=== PATIENT | female | born 1970 | race Caucasian/White ===

== ENCOUNTER → 2018-04-29 11:35 | Outpatient (CLI) | payer OTHER, SELFPAY ==
--- NOTE | 2018-04-29 | DI.MG.S_ITS ---
BILATERAL DIGITAL SCREENING MAMMOGRAM 3D/2D WITH CAD: 04/29/2018 CLINICAL: Routine screening. Comparison is made to exams dated: 09/19/2016 mammogram, 03/21/2016 mammogram, and 08/01/2014 mammogram - [facility]. There are scattered fibroglandular elements in both breasts. Current study was also evaluated with a Computer Aided Detection (CAD) system. No significant masses, calcifications, or other findings are seen in either breast. There has been no significant interval change. IMPRESSION: NEGATIVE There is no mammographic evidence of malignancy. A 1 year screening mammogram is recommended. This exam was interpreted at Station ID: [id number]. NOTE: For mammograms, a report in lay terms will be sent to the patient. Approximately 15% of breast malignancies will not be visualized mammographically. In the management of a palpable breast mass, a negative mammogram must not discourage biopsy of a clinically suspicious lesion. Electronically Signed By: Serg julian/dipesh:04/29/2018 18:38:55 copy to: Manohar Fox letter sent: Normal Exam ACR BI-RADS Category 1: Negative [id number]
== END ==
PROVIDERS: PCP Family Medicine
DX: Z12.31 Encounter for screening mammogram for malignant neoplasm of breast (principal)
CPT/HCPCS: 77063; 77067

== ENCOUNTER 2018-11-11 13:09 | Emergency (ER) | payer BC, SELFPAY ==
[2018-11-11 13:10] VITALS: BP 150/91; PULSE 106; RESP 17; TEMP 36.8; O2SAT 99; BMI 48.4
--- NOTE | 2018-11-11 13:30 | DI.US.S_ITS ---
PROCEDURE: US PERIPH VENOUS LOW EXTREM RT INDICATIONS: PAIN RT LOWER LEG, RECENT INNOBILITY TECHNIQUE: Real-time imaging, as well as color and pulse Doppler interrogation, were performed of the lower extremity deep veins from the inguinal ligament to the popliteal fossa. COMPARISON: None. FINDINGS: The common femoral, femoral and popliteal veins are normally compressible, and free of intraluminal thrombus. Color and pulse Doppler demonstrate normal phasic intraluminal flow. There is normal augmentation response to distal compression maneuver. IMPRESSION: No DVT in the right lower extremity. Dictated by: Melissa Machuca M.D. on 11/11/2018 at 14:28 Approved by: Melissa Machuca M.D. on 11/11/2018 at 14:28
--- NOTE | 2018-11-11 14:21 | ED.EXTPRO ---
HPI - Extremity Problem <Edie Osorio, SIEBEL CONSULTANT-BC - Last Filed: 11/11/18 15:45> General Chief complaint: Extremity Problem,Nontraumatic Stated complaint: PAIN IN RIGHT CALF Time Seen by Provider: 11/11/18 13:16 Source: patient Mode of arrival: ambulatory Limitations: no limitations History of Present Illness HPI Narrative: The patient is a 48-year-old female nonsmoker who presents with a chief complaint of right lower leg pain. She states she has been having right lower leg pain since she got back from her trip to [place] about 4-5 days ago. She had a [address] day. She denies any recent surgeries, but does admit to being immobile during her travels. She denies any personal history of blood clots, but is very concerned as she has a friend who from a DVT last year. She denies any fevers nausea vomiting diarrhea chest pain or shortness of breath. She denies any hormone use other than her Mirena IUD. Related Data Home Medications Medication Instructions Recorded Confirmed Pseudoephedrine Hydrochlorid 60 mg PO PRN #0 07/28/11 04/20/18 (#SUDAFED) esomeprazole magnesium [Nexium] 40 mg PO QDAY #0 07/28/11 04/20/18 Acetaminophen/Aspirin/Caffei 2 2 PO PRN #0 05/21/12 04/20/18 (EXCEDRIN EXTRA STRENGTH 250 MG-250 MG-65 MG~) CHOLECALCIFEROL (VITAMIN D3) 1,000 units PO QDAY #0 05/21/12 04/20/18 (VITAMIN D3) MECLIZINE HCL 25 mg PO #0 05/21/12 04/20/18 CALCIUM CARBONATE (TUMS ) 500 mg PO PRN #0 08/19/12 04/20/18 VITAMIN B COMPLEX (Vitamin B 1 tab PO QDAY #0 08/19/12 04/20/18 Complex) levonorgestrel [Mirena] 52 mg INTRAU #0 03/25/16 04/20/18 Previous Rx's Medication Instructions Recorded metronidazole [Metrogel Vaginal] 1 appl VAGINAL HS #70 gm 11/03/17 Allergies Allergy/AdvReac Type Severity Reaction Status Date / Time ciprofloxacin [CIPROFLOXACIN] Allergy Mild HIVES Verified 11/11/18 13:14 benzoin [BENZOIN] Allergy Unknown Verified 11/11/18 13:14 morphine [MORPHINE] Allergy Unknown Verified 11/11/18 13:14 SKIN GLUE Allergy Unknown BLISTERS Uncoded 04/20/18 16:31 Review of Systems <ANTONINA Tidwell - Last Filed: 11/11/18 15:45> Review of Systems GENERAL: Denies chills, fatigue, malaise, fever, sweats. HEENT: Denies sinus pain, ear pain, sore throat, difficulty swallowing, dizziness. RESPIRATORY: Denies dyspnea, cough, wheezing, hemoptysis, sputum. CARDIOVASCULAR: Denies chest pain, palpitations, orthopnea, edema, GASTROINTESTINAL: Denies nausea, vomiting, abdominal pain, diarrhea, constipation, melena. : Denies dysuria, frequency, incontinence, hematuria, urinary retention. MUSCULOSKELETAL: See HPI SKIN: Denies rash, skin lesions, or other NEUROLOGIC: Denies weakness, headache, numbness, change in speech, confusion, seizures, incoordination. PSYCHIATRIC: No concerning psychosocial issues. 12 point review of systems is negative except for those stated above PFSH <ANTONINA Tidwell - Last Filed: 11/11/18 15:45> Surgical History Status post delivery (12/25/03) Status post delivery (12/19/05) Status post ovarian cystectomy Social History Smoking Status: Never smoker Social History Smoking Status: Never smoker Exam <ANTONINA Tidwell - Last Filed: 11/11/18 15:45> Narrative Exam Narrative: GENERAL: Obese female in no acute distress HEAD: Atraumatic. Normocephalic. No temporal or scalp tenderness. EYES: Pupils equal round and reactive. Extraocular motions intact. No scleral icterus. No injection or drainage. ENT: Nose without bleeding, purulent drainage or septal hematoma. Throat without erythema, tonsillar hypertrophy or exudate. Uvula midline. Airway patent. NECK: Trachea midline. No JVD or lymphadenopathy. Supple, nontender, no meningeal signs. CARDIOVASCULAR: Regular rate and rhythm without murmurs, gallops, or rubs. RESPIRATORY: Clear to auscultation. Breath sounds equal bilaterally. No wheezes, rales, or rhonchi. No cough. No increased respiratory effort. No accessory muscle use. GASTROINTESTINAL: Abdomen soft, non-tender, nondistended. No hepato-splenomegaly, or palpable masses. No guarding. EXTREMITIES: No pedal edema noted bilaterally. Positive pedal pulses bilaterally. Slight pain to palpation right posterior calf. Negative Homans sign right lower leg. BACK: Nontender without deformity or crepitance. No flank tenderness. NEURO: AOx3. SKIN: No erythema ecchymosis or visual abnormality right lower leg Initial Vital Signs Initial Vital Signs: Vital Signs Temperature 98.3 F 11/11/18 13:10 Pulse Rate 106 H 11/11/18 13:10 Respiratory Rate 17 11/11/18 13:10 Blood Pressure 150/91 H 11/11/18 13:10 Pulse Oximetry 99 11/11/18 13:10 <Taina Ortiz MD - Last Filed: 11/11/18 19:57> Initial Vital Signs Initial Vital Signs: Vital Signs Temperature 98.3 F 11/11/18 13:10 Pulse Rate 106 H 11/11/18 13:10 Respiratory Rate 17 11/11/18 13:10 Blood Pressure 150/91 H 11/11/18 13:10 Pulse Oximetry 99 11/11/18 13:10 Course <ANTONINA Tidwell - Last Filed: 11/11/18 15:45> Orders Ordered: ED Orders 11/11/18 13:30 periph venous low extrem rt Stat Vital Signs - 8 hr 11/11/18 13:10 11/11/18 15:47 Temperature 98.3 F Pulse Rate 106 H 84 Respiratory Rate 17 20 Blood Pressure 150/91 H 160/87 H Pulse Oximetry 99 99 <Taina Ortiz MD - Last Filed: 11/11/18 19:57> Orders Ordered: ED Orders 11/11/18 13:30 periph venous low extrem rt Stat Vital Signs - 8 hr 11/11/18 13:10 11/11/18 15:47 Temperature 98.3 F Pulse Rate 106 H 84 Respiratory Rate 17 20 Blood Pressure 150/91 H 160/87 H Pulse Oximetry 99 99 MDM - Extremity (Nontraumatic) <ANTONINA Tidwell - Last Filed: 11/11/18 15:45> Imaging Data Venous US: Radiologist's impression: Sarah Hunt R 48 F 1970 [place] [address] Ultrasound Report Signed Patient: Sarah Hunt RMR#: [id number] : 1970Acct:[id number] Age/Sex: 48 / FDate of Service: 11/11/18 Loc: ED Accession Number: [id number] Procedure: US periph venous low extrem rt Ordering Provider: Edie OsorioP-BC PROCEDURE: US PERIPH VENOUS LOW EXTREM RT INDICATIONS: PAIN RT LOWER LEG, RECENT INNOBILITY TECHNIQUE: Real-time imaging, as well as color and pulse Doppler interrogation, were performed of the lower extremity deep veins from the inguinal ligament to the popliteal fossa. COMPARISON: None. FINDINGS: The common femoral, femoral and popliteal veins are normally compressible, and free of intraluminal thrombus. Color and pulse Doppler demonstrate normal phasic intraluminal flow. There is normal augmentation response to distal compression maneuver. IMPRESSION: No DVT in the right lower extremity. Dictated by: Melissa Machuca M.D. on 11/11/2018 at 14:28 Approved by: Melissa Machuca M.D. on 11/11/2018 at 14:28 [facility] Narrative Medical decision making narrative: The patient is a 48-year-old female who presents with a chief complaint of right lower leg pain. She does have a few risk factors for DVT including obesity as well as a recent 14 hour trip. She denies any chest pain or shortness of breath. Given her risk factors, an ultrasound was obtained. This ultrasound come back negative for any evidence of DVT. I discussed at length pushing fluids, conservative measures. Offered to check patient's electrolytes, but patient declined. She states she will follow up with her primary care provider in the next few days. I discussed come back to ER for any acute concerns such as chest pain, shortness of breath or swelling. Patient has no questions or concerns upon discharge. Discharge Plan Departure Patient Disposition: Home Clinical Impression: Leg pain Qualifiers: Laterality: right Qualified Code(s): M79.604 - Pain in right leg Discharge Date/Time: 11/11/18 15:48 Interventions: ED Discharge Assessment Last Done: 11/11/18 15:47 Instructions: DI for Leg Pain Activity Restrictions/Additional Instructions: Your ultrasound shows no evidence of a blood clot. As we discussed, please try [id number] medications as needed and able. Please follow up with primary care provider in the next few days. Please come back to the emergency department for any acute concerns such as chest pain, shortness of breath etc. Prescriptions: No Action esomeprazole magnesium [Nexium] 40 MG capsule,delayed release(DR/EC) 40 mg PO QDAY Qty: 0 RF: 0 Pseudoephedrine Hydrochlorid (#SUDAFED) 60 mg PO PRN Qty: 0 RF: 0 CHOLECALCIFEROL (VITAMIN D3) (VITAMIN D3) 1,000 units PO QDAY Qty: 0 RF: 0 MECLIZINE HCL 25 mg PO Qty: 0 RF: 0 Acetaminophen/Aspirin/Caffei (EXCEDRIN EXTRA STRENGTH 250 MG-250 MG-65 MG~) 2 2 PO PRN Qty: 0 RF: 0 CALCIUM CARBONATE (TUMS ) 500 mg PO PRN Qty: 0 RF: 0 VITAMIN B COMPLEX (Vitamin B Complex) 1 tab PO QDAY Qty: 0 RF: 0 levonorgestrel [Mirena] 1 EACH intrauterine device 52 mg INTRAU Qty: 0 RF: 0 metronidazole [Metrogel Vaginal] 0.75 % gel 1 appl Vaginal HS Qty: 70 RF: 0 Referrals: Manohar Fox MD [Primary Care Provider] -
--- NOTE | 2018-11-11 14:24 | ED_ITS ---
HPI - Extremity Problem <Edie Osorio, PRE OWNED SALES CONSULTANT-BC - Last Filed: 11/11/18 15:45> General Chief complaint: Extremity Problem,Nontraumatic Stated complaint: PAIN IN RIGHT CALF Time Seen by Provider: 11/11/18 13:16 Source: patient Mode of arrival: ambulatory Limitations: no limitations History of Present Illness HPI Narrative: The patient is a 48-year-old female nonsmoker who presents with a chief complaint of right lower leg pain. She states she has been having right lower leg pain since she got back from her trip to [place] about 4-5 days ago. She had a [address] day[address] She denies any recent surgeries, but does admit to being immobile during her travels. She denies any personal history of blood clots, but is very concerned as she has a friend who from a DVT last year. She denies any fevers nausea vomiting diarrhea chest pain or shortness of breath. She denies any hormone use other than her Mirena IUD. Related Data Home Medications Medication Instructions Recorded Confirmed Pseudoephedrine Hydrochlorid 60 mg PO PRN #0 07/28/11 04/20/18 (#SUDAFED) esomeprazole magnesium [Nexium] 40 mg PO QDAY #0 07/28/11 04/20/18 Acetaminophen/Aspirin/Caffei 2 2 PO PRN #0 05/21/12 04/20/18 (EXCEDRIN EXTRA STRENGTH 250 MG-250 MG-65 MG~) CHOLECALCIFEROL (VITAMIN D3) 1,000 units PO QDAY #0 05/21/12 04/20/18 (VITAMIN D3) MECLIZINE HCL 25 mg PO #0 05/21/12 04/20/18 CALCIUM CARBONATE (TUMS ) 500 mg PO PRN #0 08/19/12 04/20/18 VITAMIN B COMPLEX (Vitamin B 1 tab PO QDAY #0 08/19/12 04/20/18 Complex) levonorgestrel [Mirena] 52 mg INTRAU #0 03/25/16 04/20/18 Previous Rx's Medication Instructions Recorded metronidazole [Metrogel Vaginal] 1 appl VAGINAL HS #70 gm 11/03/17 Allergies Allergy/AdvReac Type Severity Reaction Status Date / Time ciprofloxacin [CIPROFLOXACIN] Allergy Mild HIVES Verified 11/11/18 13:14 benzoin [BENZOIN] Allergy Unknown Verified 11/11/18 13:14 morphine [MORPHINE] Allergy Unknown Verified 11/11/18 13:14 SKIN GLUE Allergy Unknown BLISTERS Uncoded 04/20/18 16:31 Review of Systems <ANTONINA Tidwell - Last Filed: 11/11/18 15:45> Review of Systems GENERAL: Denies chills, fatigue, malaise, fever, sweats. HEENT: Denies sinus pain, ear pain, sore throat, difficulty swallowing, dizziness. RESPIRATORY: Denies dyspnea, cough, wheezing, hemoptysis, sputum. CARDIOVASCULAR: Denies chest pain, palpitations, orthopnea, edema, GASTROINTESTINAL: Denies nausea, vomiting, abdominal pain, diarrhea, constipation, melena. : Denies dysuria, frequency, incontinence, hematuria, urinary retention. MUSCULOSKELETAL: See HPI SKIN: Denies rash, skin lesions, or other NEUROLOGIC: Denies weakness, headache, numbness, change in speech, confusion, seizures, incoordination. PSYCHIATRIC: No concerning psychosocial issues. 12 point review of systems is negative except for those stated above PFSH <ANTONINA Tidwell - Last Filed: 11/11/18 15:45> Surgical History Status post delivery (12/25/03) Status post delivery (12/19/05) Status post ovarian cystectomy Social History Smoking Status: Never smoker Social History Smoking Status: Never smoker Exam <ANTONINA Tidwell - Last Filed: 11/11/18 15:45> Narrative Exam Narrative: GENERAL: Obese female in no acute distress HEAD: Atraumatic. Normocephalic. No temporal or scalp tenderness. EYES: Pupils equal round and reactive. Extraocular motions intact. No scleral icterus. No injection or drainage. ENT: Nose without bleeding, purulent drainage or septal hematoma. Throat without erythema, tonsillar hypertrophy or exudate. Uvula midline. Airway patent. NECK: Trachea midline. No JVD or lymphadenopathy. Supple, nontender, no meningeal signs. CARDIOVASCULAR: Regular rate and rhythm without murmurs, gallops, or rubs. RESPIRATORY: Clear to auscultation. Breath sounds equal bilaterally. No wheezes, rales, or rhonchi. No cough. No increased respiratory effort. No accessory muscle use. GASTROINTESTINAL: Abdomen soft, non-tender, nondistended. No hepato- splenomegaly, or palpable masses. No guarding. EXTREMITIES: No pedal edema noted bilaterally. Positive pedal pulses bilaterally. Slight pain to palpation right posterior calf. Negative Homans sign right lower leg. BACK: Nontender without deformity or crepitance. No flank tenderness. NEURO: AOx3. SKIN: No erythema ecchymosis or visual abnormality right lower leg Initial Vital Signs Initial Vital Signs: Vital Signs Temperature 98.3 F 11/11/18 13:10 Pulse Rate 106 H 11/11/18 13:10 Respiratory Rate 17 11/11/18 13:10 Blood Pressure 150/91 H 11/11/18 13:10 Pulse Oximetry 99 11/11/18 13:10 <Taina Ortiz MD - Last Filed: 11/11/18 19:57> Initial Vital Signs Initial Vital Signs: Vital Signs Temperature 98.3 F 11/11/18 13:10 Pulse Rate 106 H 11/11/18 13:10 Respiratory Rate 17 11/11/18 13:10 Blood Pressure 150/91 H 11/11/18 13:10 Pulse Oximetry 99 11/11/18 13:10 Course <ANTONINA Tidwell - Last Filed: 11/11/18 15:45> Orders Ordered: ED Orders 11/11/18 13:30 periph venous low extrem rt Stat Vital Signs - 8 hr 11/11/18 13:10 11/11/18 15:47 Temperature 98.3 F Pulse Rate 106 H 84 Respiratory Rate 17 20 Blood Pressure 150/91 H 160/87 H Pulse Oximetry 99 99 <Taina Ortiz MD - Last Filed: 11/11/18 19:57> Orders Ordered: ED Orders 11/11/18 13:30 periph venous low extrem rt Stat Vital Signs - 8 hr 11/11/18 13:10 11/11/18 15:47 Temperature 98.3 F Pulse Rate 106 H 84 Respiratory Rate 17 20 Blood Pressure 150/91 H 160/87 H Pulse Oximetry 99 99 MDM - Extremity (Nontraumatic) <ANTONINA Tidwell - Last Filed: 11/11/18 15:45> Imaging Data Venous US: Radiologist's impression: Sarah Hunt R 48 F 1970 [place] [address] Ultrasound Report Signed Patient: Sarah Hunt RMR#: [id number] : 1970Acct:[id number] Age/Sex: 48 / FDate of Service: 11/11/18 Loc: ED Accession Number: [id number] Procedure: US periph venous low extrem rt Ordering Provider: Edie OsorioP-BC PROCEDURE: US PERIPH VENOUS LOW EXTREM RT INDICATIONS: PAIN RT LOWER LEG, RECENT INNOBILITY TECHNIQUE: Real-time imaging, as well as color and pulse Doppler interrogation, were performed of the lower extremity deep veins from the inguinal ligament to the popliteal fossa. COMPARISON: None. FINDINGS: The common femoral, femoral and popliteal veins are normally compressible, and free of intraluminal thrombus. Color and pulse Doppler demonstrate normal phasic intraluminal flow. There is normal augmentation response to distal compression maneuver. IMPRESSION: No DVT in the right lower extremity. Dictated by: Melissa Machuca M.D. on 11/11/2018 at 14:28 Approved by: Melissa Machuca M.D. on 11/11/2018 at 14:28 [facility] Narrative Medical decision making narrative: The patient is a 48-year-old female who presents with a chief complaint of right lower leg pain. She does have a few risk factors for DVT including obesity as well as a recent 14 hour trip. She denies any chest pain or shortness of breath. Given her risk factors, an ultrasound was obtained. This ultrasound come back negative for any evidence of DVT. I discussed at length pushing fluids, conservative measures. Offered to check patient's electrolytes, but patient declined. She states she will follow up with her primary care provider in the next few days. I discussed come back to ER for any acute concerns such as chest pain, shortness of breath or swe lling. Patient has no questions or concerns upon discharge. Discharge Plan Departure Patient Disposition: Home Clinical Impression: Leg pain Qualifiers: Laterality: right Qualified Code(s): M79.604 - Pain in right leg Discharge Date/Time: 11/11/18 15:48 Interventions: ED Discharge Assessment Last Done: 11/11/18 15:47 Instructions: DI for Leg Pain Activity Restrictions/Additional Instructions: Your ultrasound shows no evidence of a blood clot. As we discussed, please try [id number] medications as needed and able. Please follow up with primary care provider in the next few days. Please come back to the emergency department for any acute concerns such as chest pain, shortness of breath etc. Prescriptions: No Action esomeprazole magnesium [Nexium] 40 MG capsule,delayed release(DR/EC) 40 mg PO QDAY Qty: 0 RF: 0 Pseudoephedrine Hydrochlorid (#SUDAFED) 60 mg PO PRN Qty: 0 RF: 0 CHOLECALCIFEROL (VITAMIN D3) (VITAMIN D3) 1,000 units PO QDAY Qty: 0 RF: 0 MECLIZINE HCL 25 mg PO Qty: 0 RF: 0 Acetaminophen/Aspirin/Caffei (EXCEDRIN EXTRA STRENGTH 250 MG-250 MG-65 MG~) 2 2 PO PRN Qty: 0 RF: 0 CALCIUM CARBONATE (TUMS ) 500 mg PO PRN Qty: 0 RF: 0 VITAMIN B COMPLEX (Vitamin B Complex) 1 tab PO QDAY Qty: 0 RF: 0 levonorgestrel [Mirena] 1 EACH intrauterine device 52 mg INTRAU Qty: 0 RF: 0 metronidazole [Metrogel Vaginal] 0.75 % gel 1 appl Vaginal HS Qty: 70 RF: 0 Referrals: Manohar Fox MD [Primary Care Provider] -
[2018-11-11 15:47] VITALS: BP 160/87; PULSE 84; RESP 20; O2SAT 99
== END 2018-11-11 15:48 | disposition home or self-care (01) ==
PROVIDERS: Emergency Provider Nurse Practitioner Family; PCP Family Medicine
DX: M79.604 Pain in right leg (principal)
CPT/HCPCS: 93971; 99282; 99283

== ENCOUNTER → 2019-01-25 18:53 | Outpatient (CLI) | payer BC, SELFPAY | PROVIDERS: PCP Family Medicine; Visit Provider Physician Assistant | DX: R30.0 Dysuria (principal) | CPT/HCPCS: 87086; 87210 ==

== ENCOUNTER → 2020-02-16 08:31 | Outpatient (CLI) | payer OTHER, SELFPAY ==
--- NOTE | 2020-02-16 | DI.MG.S_ITS ---
BILATERAL DIGITAL SCREENING MAMMOGRAM 3D/2D WITH CAD: 02/16/2020 CLINICAL: Routine screening. Comparison is made to exams dated: 04/29/2018 mammogram, 03/21/2016 mammogram, and 08/01/2014 mammogram - [facility]. There are scattered fibroglandular elements in both breasts. Current study was also evaluated with a Computer Aided Detection (CAD) system. No significant masses, calcifications, or other findings are seen in either breast. There has been no significant interval change. IMPRESSION: NEGATIVE There is no mammographic evidence of malignancy. A 1 year screening mammogram is recommended. This exam was interpreted at Station ID: [id number]. NOTE: For mammograms, a report in lay terms will be sent to the patient. Approximately 15% of breast malignancies will not be visualized mammographically. In the management of a palpable breast mass, a negative mammogram must not discourage biopsy of a clinically suspicious lesion. Electronically Signed By: Neetu resendez/dipesh:02/16/2020 09:44:08 copy to: Manohar Fox letter sent: Normal Exam ACR BI-RADS Category 1: Negative 3341F
== END ==
PROVIDERS: PCP Student in an Organized Health Care Education/Training Program; Referring Provider Student in an Organized Health Care Education/Training Program; Visit Provider Student in an Organized Health Care Education/Training Program
DX: Z12.31 Encounter for screening mammogram for malignant neoplasm of breast (principal)
CPT/HCPCS: 77063; 77067

== ENCOUNTER → 2020-06-18 12:17 | Outpatient (CLI) | payer OTHER, SELFPAY ==
--- NOTE | 2020-06-18 | DI.RAD.S_ITS ---
PROCEDURE: XR ANKLE LT MIN 3V INDICATIONS: LEFT ANKLE PAIN TECHNIQUE: 3 views of the ankle were acquired. COMPARISON: None. FINDINGS: Bones: No dislocations. Ankle mortise is normally aligned. No suspicious bony lesions. There is a transverse fracture approximately 1 cm above the tip of the lateral malleolus, with overlying soft tissue swelling. This is slightly displaced laterally below the fracture plane. Soft tissues: No tibiotalar joint effusion. Achilles tendon appears normal. IMPRESSION: Mildly displaced acute fracture lateral malleolus as discussed with overlying soft tissue swelling. Dictated by: Parveen Berrios M.D. on 06/18/2020 at 12:50 Approved by: Parveen Berrios M.D. on 06/18/2020 at 12:51
== END ==
PROVIDERS: PCP Student in an Organized Health Care Education/Training Program; Referring Provider Family Medicine; Visit Provider Family Medicine
DX: S82.62XA Displaced fracture of lateral malleolus of left fibula, initial encounter for closed fracture (principal); M25.572 Pain in left ankle and joints of left foot; X58.XXXA Exposure to other specified factors, initial encounter
CPT/HCPCS: 73610

== ENCOUNTER → 2020-09-12 12:14 | Outpatient (CLI) | payer OTHER, SELFPAY ==
--- NOTE | 2020-09-12 | DI.US.S_ITS ---
PROCEDURE: US PELVIC COMPLETE INDICATIONS: Encounter for routine checking of intrauterine contraceptive TECHNIQUE: Real-time scanning was performed of the pelvic organs, with image documentation. Additional endovaginal scanning was necessary due to incomplete visualization of the adnexal and endometrial structures by transabdominal scanning. COMPARISON: [facility], , PELVIC COMPLETE, 01/14/2017, 7:50. FINDINGS: Uterus: Uterus is normal in size at 5.1 x 6.3 x 6.2 cm. The endometrium appears normal where well seen but is partially obscured by an IUD centrally positioned. Ovaries: The right ovary has been previously resected. The left ovary measures 3.0 x 1.9 x 2.6 cm with normal follicular cyst present. Other: No pathologic free abdominal or pelvic fluid. IMPRESSION: Prior right oophorectomy, normal appearing myometrium of the uterus, centrally positioned IUD partially obscures the endometrial lining but where well visualized no endometrial abnormality is suspected. Dictated by: Parveen Berrios M.D. on 09/12/2020 at 14:51 Approved by: Parveen Berrios M.D. on 09/12/2020 at 14:53
== END ==
PROVIDERS: PCP Student in an Organized Health Care Education/Training Program; Referring Provider Student in an Organized Health Care Education/Training Program; Visit Provider Student in an Organized Health Care Education/Training Program
DX: Z30.431 Encounter for routine checking of intrauterine contraceptive device (principal); Z90.721 Acquired absence of ovaries, unilateral
CPT/HCPCS: 76830; 76856

== ENCOUNTER → 2020-10-25 10:20 | Outpatient (CLI) | payer OTHER, SELFPAY ==
[2020-10-25 10:50] LABS: COVID19 -Nasal RAPID Negative (Negative)
== END ==
PROVIDERS: PCP Student in an Organized Health Care Education/Training Program; Visit Provider Obstetrics & Gynecology
DX: Z01.812 Encounter for preprocedural laboratory examination (principal); Z20.822 Contact with and (suspected) exposure to COVID-19
CPT/HCPCS: 87635

== ENCOUNTER 2020-10-26 10:31 | Day surgery (SDC) | payer OTHER, SELFPAY ==
[2020-10-25 14:16] VITALS: BMI 50.8
[2020-10-26 10:52] VITALS: BP 132/93; PULSE 95; RESP 16; TEMP 36.3; O2SAT 99; BMI 50.8
[2020-10-26] MEDS: LACTATED RINGERS 1,000 ML 42 ML IV (11:20)
--- NOTE | 2020-10-26 11:25 | PM.GYNHP.1 ---
History of Present Illness History of Present Illness Narrative: Sarah Hunt is a 50 yo LMP approximately 3 weeks ago who presents today for hysteroscopy with IUD removal and replacement with a new Mirena IUD in the Main OR [facility] under general anesthesiaon 10/26/2020. Attempt to remove her IUD in the office on 09/19/2020 was unsuccessful and therefore removal is being performed today with plans to repalce the Mirena IUD with a new one. 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 IBS (irritable bowel syndrome) Surgical History Status post delivery (12/25/03) Status post delivery (12/19/05) Status post ovarian cystectomy Status post right oophorectomy Social History household members: spouse Smoking Status: Never smoker alcohol intake: current Meds Home Medications and Allergies Home Medications Medication Instructions Recorded Confirmed Type Pseudoephedrine Hydrochlorid 60 mg PO PRN #0 07/28/11 10/26/20 History (#SUDAFED) esomeprazole magnesium [Nexium] 40 mg PO QDAY #0 07/28/11 10/26/20 History Acetaminophen/Aspirin/Caffei 2 2 PO PRN #0 05/21/12 10/26/20 History (EXCEDRIN EXTRA STRENGTH 250 MG-250 MG-65 MG~) cholecalciferol (vitamin D3) 25 mcg PO DAILY #0 05/21/12 10/26/20 History [Vitamin D3] meclizine 25 mg PO PRN PRN #0 05/21/12 10/26/20 History calcium carbonate [Tums 500] 500 mg PO DAILY PRN #0 08/19/12 10/26/20 History vitamin B complex 1 cap PO DAILY #0 08/19/12 10/26/20 History Mirena 52 mg INTRAU CONT #0 03/25/16 10/26/20 History levocetirizine 5 mg tablet 2.5 mg PO DAILY PRN 01/25/19 10/25/20 History Allergies Allergy/AdvReac Type Severity Reaction Status Date / Time ciprofloxacin [CIPROFLOXACIN] Allergy Mild HIVES Verified 10/26/20 10:54 benzoin [BENZOIN] Allergy Unknown Verified 10/26/20 10:54 morphine [MORPHINE] Allergy Unknown Verified 10/26/20 10:54 SKIN GLUE Allergy Unknown BLISTERS Uncoded 10/26/20 10:55 Review of Systems Constitutional Constitutional: Reports system reviewed and no additional complaints, except as documented Exam Vital Signs (past 8 hours): - 10/26/20 10:52 Temperature 97.3 F L Pulse Rate 95 H Respiratory Rate 16 Blood Pressure 132/93 H Pulse Oximetry 99 Oxygen Delivery Method Room Air Const General: cooperative, comfortable and No acute distress HENUT Head: normocephalic and atraumatic Eyes General: appearance normal, both eyes and all related structures Conjunctivae: conjunctivae normal Sclera: sclerae normal EOM: EOM intact bilaterally Neck Neck: normal visual inspection, full ROM, trachea midline and No lymphadenopathy Thyroid: thyroid normal Resp Effort & Inspection: normal respiratory effort and able to speak in complete sentences Auscultation: clear to auscultation bilaterally Cardio Rhythm: regular rhythm Heart Sounds: S1 normal, S2 normal and no murmurs GI Palpation: soft, no hepatosplenomegaly, No mass and No tender External Female Exam: normal external appearance Speculum Exam - Vagina: normal appearance of the vagina and normal vaginal discharge Speculum Exam - Cervix: normal appearance of the cervix and cervical os open Bimanual Exam- Vagina & Uterus: normal bimanual exam, uterine size normal and non-tender Bimanual Exam- Adnexa, other: normal adnexae and no masses OB/External & Speculum: cervical os open Psych Mental Status: mental status grossly normal Speech and Movement: speech and movement normal Mood: congruent mood Affect: normal affect Attitude: cooperative Thought Process: normal Thought Content: normal Judgment: judgment good Assessment & Plan Assessment & Plan narrative: ASSESSMENT: IUD in situ Missing IUD strings Encounter for removal and insertion of Mirena IUD PLAN: Hysteroscopy with removal of Mirena IUD under hysteroscopic visualization Insertion of new Mirena IUD COVID-19 COVID-19 status: Negative Result date/Date tested (Pos, Neg/Pending): 10/25/20 Time Spent With Patient Time with patient: 15-24 minutes
--- NOTE | 2020-10-26 11:45 | PM.PREOP ---
Pre-operative Note COVID-19 COVID-19 status: Negative Result date/Date tested (Pos, Neg/Pending): 10/26/20 Interval Note History & Physical reviewed/Exam performed by Physician: Yes Changes to H&P: No
--- NOTE | 2020-10-26 12:09 | SUR.OPER ---
Lithotomy on padded OR bed, head on pillow, arms secured on padded arm boards at <90 degrees abduction. Legs secured in padded yellow fins stirrups.
[2020-10-26 12:22] VITALS: BP 131/75; PULSE 78; RESP 14; TEMP 36.9; O2SAT 100
[2020-10-26 12:26] VITALS: BP 140/84; PULSE 79; RESP 16; O2SAT 79
[2020-10-26 12:31] VITALS: BP 131/75; PULSE 59; RESP 14; O2SAT 100
[2020-10-26] MEDS: SILVER NITRATE STICK 2 EACH TOP (12:31)
[2020-10-26] MEDS: OXYCODONE/ACETAMINOPHEN 5/325 TABLET 1 TAB PO (12:47)
--- NOTE | 2020-10-26 12:52 | P.OP_ITS ---
Operative Date/Time/Diagnoses Date of procedure: 10/26/20 Time of procedure: 11:45 Pre-op diagnosis: Intrauterine device in situ Missing IUD strings Encounter for removal and replacement of Mirena IUD Post-op diagnosis: same Procedure & Clinicians Procedure: Procedures Operation Date: 10/26/20 11:45 Actual Procedures Side Surgeon p Operative Hysteroscopy Marco Reynaga MD s IUD removal & insertion of Mirena IUD Marco Reynaga MD Indications: Sarah Hunt is a 50 yo LMP approximately 3 weeks ago who presents today for hysteroscopy with IUD removal and replacement with a new Mirena IUD in the Main OR of [facility] under general anesthesiaon 10/26/2020. Attempt to remove her IUD in the office on 09/19/2020 was unsuccessful and therefore removal is being performed today with plans to repalce the Mirena IUD with a new one. Surgeon: Marco Reynaga Anesthesia Type: General Operative Notes Findings: Mirena IUD removed intact without difficulty. Endometrial cavity is unremarkable hysteroscopic evaluation. No endometrial or endocervical sampling was performed. Closure Type: not applicable Specimen(s): none Estimated blood loss (mL): 5 Blood products transfused: none Procedure in detail: With the patient under satisfactory general LMA, the patient was placed in modified dorsal lithotomy position and the vagina and lower abdomen prepped in the usual fashion. A pre-surgical safety time-out was taken per [facility] protocol. A bivalve speculum was placed in the vagina, the cervix visualized, and the anterior lip grasped with single- tooth tenaculum. The endocervical canal was then sequentially dilated to 8 mm using Hegar dilators and the operating hysteroscope was introduced into the endometrial cavity without difficulty. Using saline as a distention medium the cavity was fully inspected and seen to be normal. The intrauterine device was in normal position but the strings were deep within the endometrial cavity. The scope was removed and using a Blayne stone forceps introduced through the endocervical canal the IUD strings were able to be grasped and the delivered through the cervix without difficulty, intact. The uterus was then sounded to 10 cm and a new Mirena was inserted using standard insertion technique. The strings were trimmed to 4 cm and the tenaculum removed from the anterior lip of the cervix. Silver nitrate was applied to the puncture site on the patient's right side for complete hemostasis and once hemostasis was assured the speculum was removed from the vagina and the operation terminated. Patient was awakened and transferred to PACU for a period of recovery and observation having tolerated the procedure well. Complications: none Post-operative Condition: stable Disposition: PACU Plan for aftercare: Discharge to home with follow-up appointment in 2 weeks. Post insertion instructions provided and the patient will be prescribed Vibramycin 100 mg p.o. b.i.d. x5 days as postop antibiotic prophylaxis.
[2020-10-26 12:55] VITALS: BP 128/80; PULSE 80; RESP 14; TEMP 36.6; O2SAT 100
[2020-10-26 13:00] VITALS: BP 122/83; PULSE 80; RESP 16; O2SAT 100
== END 2020-10-26 13:10 | disposition home or self-care (01) ==
PROVIDERS: PCP Student in an Organized Health Care Education/Training Program; Referring Provider Obstetrics & Gynecology; Visit Provider Obstetrics & Gynecology
PROC: 0UDB8ZZ Extraction of Endometrium, Via Natural or Artificial Opening Endoscopic (ICD-10-PCS; CPT 58558; principal; 2020-10-26 11:45)
PROC: (CPT 58301; 2020-10-26 11:45)
DX: Z30.433 Encounter for removal and reinsertion of intrauterine contraceptive device (principal)
CPT/HCPCS: 58301; 58300; 81025; J1100; J1885; J2250; J2405; J2704; J3010

== ENCOUNTER → 2020-11-18 16:01 | Outpatient (CLI) | payer OTHER, SELFPAY | PROVIDERS: PCP Student in an Organized Health Care Education/Training Program; Visit Provider Physician Assistant | DX: N94.9 Unspecified condition associated with female genital organs and menstrual cycle (principal); R31.9 Hematuria, unspecified | CPT/HCPCS: 87086; 87210 ==

== ENCOUNTER 2021-06-03 10:13 | Emergency (ER) | payer OTHER, SELFPAY ==
[2021-06-03] VITALS (23 sets, daily range): BP systolic 132–161; BP diastolic 67–93; PULSE 65–102; RESP 13–27; TEMP 36.2; O2SAT 96–100; BMI 51.1
--- NOTE | 2021-06-03 10:38 | DI.RAD.S_ITS ---
PROCEDURE: XR CHEST 1V INDICATIONS: chest pain TECHNIQUE: One view of the chest was acquired. COMPARISON: [facility], , CHEST 2 VIEW, 10/07/2006, 18:16. FINDINGS: Surgical changes and devices: None. Lungs and pleura: On this semiupright portable chest examination, no large pneumothorax or large pleural effusions are seen. No focal infiltrates are seen. Low lung volumes are noted. This causes a crowded appearance to the lung markings and limits evaluation. Mediastinum: Mediastinal contours appear normal. Heart size is normal. Bones and chest wall: No suspicious bony lesions. Overlying soft tissues appear unremarkable. IMPRESSION: Limited portable chest examination, without a significant cardiopulmonary abnormality identified. Dictated by: Deshaun Oliva M.D. on 06/03/2021 at 10:02 Approved by: Deshaun Oliva M.D. on 06/03/2021 at 10:03
[2021-06-03 10:59] LABS: Add Manual Diff / Slide Review NO; Basophils Absolute Auto 0 /uL (0-100); Basophils Percent Auto 0.7 % (0-2); Eosinophils Absolute Auto 100 /uL (0-450); Eosinophils Percent Auto 1.2 % (2-4); Hematocrit 41.9 % (36-46); Hemoglobin 14.1 g/dL (12.0-16.0); Lymphocytes Absolute Auto 1700 /uL (1100-4500); Lymphocytes Percent Auto 24.2 % (25-40); Mean Corpuscular HGB Conc 33.6 % (30-36); Mean Corpuscular Volume 86.3 fL (80-100); Monocytes Absolute Auto 500 /uL (0-900); Monocytes Percent Auto 7.7 % (3-14); Neutrophils Absolute Auto 4700 /uL (1500-7000); Neutrophils Percent Auto 66.2 % (50-75); Platelet Count 205 X10^3/uL (150-400); Red Blood Cell Count 4.85 X10^6/uL (4.0-5.2); Red Cell Distribution Width 12.9 % (11.6-14.8); White Blood Cell Count 7.1 X10^3/uL (4.5-11.0)
[2021-06-03 11:09] LABS: Alanine Aminotransferase 28 IU/L (<35); Albumin 4.7 g/dL (3.5-5.0); Albumin Globulin Ratio 1.4 (1.0-2.8); Alkaline Phosphatase 54 U/L (38-126); Aspartate Aminotransferase 21 IU/L (14-36); BUN Creatinine Ratio 15.7 (6-22); Bilirubin Total 0.6 mg/dL (0.2-1.3); Blood Urea Nitrogen 14 mg/dL (7-17); Calcium 10.9 mg/dL (8.4-10.2); Carbon Dioxide 25 mmol/L (22-32); Chloride 106 mmol/L (98-107); Creatine Kinase 42 U/L (30-135); Estimated Glomerular Filt Rate > 60.0 mL/min (>60); Globulin 3.3 g/dL (1.7-4.1); Glucose 122 mg/dL (70-100); HEMOLYSIS < 15 (0-50); Lipase 68 U/L (23-300); Magnesium 2.1 mg/dL (1.6-2.3); Potassium 3.8 mmol/L (3.4-5.1); Sodium 139 mmol/L (137-145)
[2021-06-03 11:21] LABS: Troponin I < 0.012 ng/mL (0.01-0.034)
[2021-06-03 15:06] LABS: D Dimer 492 ng/mL (<230)
--- NOTE | 2021-06-03 15:10 | ED_ITS ---
HPI - Arrhythmia/Palpitations <Nilson Wright PA-C - Last Filed: 06/03/21 18:03> General Chief Complaint: Arrhythmia/Palpitations Stated Complaint: Heart Palps, high BP Time Seen by Provider: 06/03/21 14:27 Source: patient and family Mode of arrival: Ambulatory History of Present Illness HPI narrative: 51-year-old female with no reported past medical history presents to the ED with 1 week of palpitations. Patient states that she has been feeling intermittent palpitations, endorses a couple episodes of left-sided chest pain that have resolved. Patient endorses nausea, denies vomiting. Patient denies fever, ch ills, shortness of breath, abdominal pain, dysuria, lightheadedness, dizziness, syncope. Patient denies history of blood clots. Patient endorses recently increased stress which seems to exacerbate her palpitations. Patient also states that her blood pressure has been elevated recently. Patient denies a diagnosis of hypertension, does not take medications for it. Patient endorses history of GERD, takes Nexium daily. Related Data Home Medications Medication Instructions Recorded Confirmed Pseudoephedrine Hydrochlorid 60 mg PO PRN #0 07/28/11 11/18/20 (#SUDAFED) esomeprazole magnesium 40 mg 40 mg PO QDAY #0 07/28/11 11/18/20 capsule,delayed release (Nexium) Acetaminophen/Aspirin/Caffei 2 2 PO PRN #0 05/21/12 11/18/20 (EXCEDRIN EXTRA STRENGTH 250 MG-250 MG-65 MG~) cholecalciferol (vitamin D3) 25 25 mcg PO DAILY #0 05/21/12 11/18/20 mcg (1,000 unit) capsule (Vitamin D3) meclizine 25 mg capsule 25 mg PO PRN PRN #0 05/21/12 11/18/20 calcium carbonate 500 mg calcium 500 mg PO DAILY PRN #0 08/19/12 11/18/20 (1,250 mg) chewable tablet vitamin B complex 1 cap PO DAILY #0 08/19/12 11/18/20 levonorgestrel 20 mcg/24 hours (7 52 mg INTRAU CONT #0 03/25/16 11/18/20 yrs) 52 mg intrauterine device (Mirena) levocetirizine 5 mg tablet (Xyzal) 2.5 mg PO DAILY PRN 01/25/19 11/18/20 Allergies Allergy/AdvReac Type Severity Reaction Status Date / Time ciprofloxacin [CIPROFLOXACIN] Allergy Mild HIVES Verified 06/03/21 10:40 benzoin [BENZOIN] Allergy Unknown Verified 06/03/21 10:40 oxycodone Allergy Unknown Verified 06/03/21 10:40 SKIN GLUE Allergy Unknown BLISTERS Uncoded 11/18/20 15:49 Review of Systems <Nilson Wright PA-C - Last Filed: 06/03/21 18:03> Review of Systems ROS Unobtainable: All systems reviewed & are unremarkable except as noted in HPI and below Constitutional Constitutional: Denies chills, Denies fatigue, Denies fever(s), Denies frequent falls, Denies lethargy and Denies weakness Eyes Eyes: Denies change in vision, Denies eye discharge, Denies irritation and Denies loss of vision ENT Ears, Nose, Mouth, and Throat: Denies change in voice, Denies dizziness, Denies neck pain, Denies sore throat and Denies throat swelling Cardiovascular Cardiovascular: Reports chest pain, Denies irregular heart rhythm, Denies lightheadedness, Denies dyspnea, Denies dyspnea on exertion and Denies orthopnea Comments: Palpitations Respiratory Respiratory: Denies cough, Denies dyspnea, Denies dyspnea on exertion and Denies wheezing Gastrointestinal Gastrointestinal: Denies abdominal pain, Denies change in bowel habits, Denies diarrhea, Reports nausea and Denies vomiting Genitourinary Genitourinary: Denies hematuria, Denies flank pain, Denies urinary incontinence and Denies urinary urgency Musculoskeletal Musculoskeletal: Denies back pain, Denies muscle weakness, Denies neck pain, Denies numbness and Denies tingling Integumentary/Breasts Skin/Breast: Denies pruritus, Denies erythema, Denies rash and Denies wounds Neurologic Neurologic: Denies behavioral changes, Denies confusion, Denies dizziness, Denies frequent falls, Denies loss of vision, Denies numbness, Denies tingling and Denies weakness Psychiatric Psychiatric: Denies anxiety, Denies behavioral changes, Denies confusion, Denies depression, Denies homicidal ideation and Denies suicidal ideation Endocrine Endocrine: Denies fatigue and Denies flushing Hematologic/Lymphatic Hematologic/Lymphatic: Denies easy bruising Allergic/Immunologic Allergic/Immunologic: Denies urticaria, Denies throat swelling and Denies wheezing Patient History <Nilson Wright PA-C - Last Filed: 06/03/21 18:03> Medical History 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 IBS (irritable bowel syndrome) Surgical History Status post delivery (12/25/03) Status post delivery (12/19/05) Status post ovarian cystectomy Status post right oophorectomy Social History household members: spouse Smoking Status: Never smoker alcohol intake: current Smoking Status: Never smoker alcohol intake frequency: holidays/special occasions only Substance Use Type: does not use Exam <Nilson Wright PA-C - Last Filed: 06/03/21 18:03> Initial Vital Signs Initial Vital Signs: Vital Signs Pulse Rate 101 H 06/03/21 10:31 Respiratory Rate 17 06/03/21 10:31 Pulse Oximetry 100 06/03/21 10:31 Const General: cooperative, healthy appearing and comfortable HENCO Head: normal to inspection Eyes General: appearance normal, both eyes and all related structures Neck Neck: normal visual inspection Chest Chest: normal inspection of the chest Resp Effort & Inspection: normal respiratory effort Auscultation: clear to auscultation bilaterally Cardio Rate: regular rate Rhythm: regular rhythm GI Other: Abdomen is soft, nondistended, nontender to palpation. No CVA tenderness. General: No CVA tenderness Back/Spine/Pelvis Back: normal to inspection Skin General: no rashes or lesions noted Neuro General: patient alert, patient awake and patient oriented x3 Extrem General: normal to inspection Psych Appearance: grossly normal <Galina Farnsworth MD - Last Filed: 06/03/21 18:30> Initial Vital Signs Initial Vital Signs: Vital Signs Pulse Rate 101 H 06/03/21 10:31 Respiratory Rate 17 06/03/21 10:31 Pulse Oximetry 100 06/03/21 10:31 Course <Nilson Wright PA-C - Last Filed: 06/03/21 18:03> Orders Ordered: ED Orders 06/03/21 10:38 XR chest 1V Stat 01/31/22 10:39 EKG-12 Lead Stat 06/03/21 10:49 Complete Blood Count AUTO DIFF Stat Comprehensive Metabolic Panel Stat D Dimer Stat Lipase Stat Magnesium Stat NT-proBNP (BNP-Adult 18+) Stat Troponin & CK Cardiac Panel Stat 06/03/21 15:13 CT angio chest PE protocol Stat Discontinued Medications Al Hydrox/Mg Hydrox/Simethicone 20 ml/ Lidocaine HCl 15 ml 0 ml PO NOW ONE Stop: 06/03/21 14:48 Last Admin: 06/03/21 15:24 Dose: 15 ml Documented by: ROBERT Famotidine (Famotidine 20 Mg/2 Ml Vial) 20 mg IV NOW VLAD Last Admin: 06/03/21 15:33 Dose: 20 mg Documented by: ROBERT Vital Signs Vital signs: Vital Signs - 8 hr 06/03/21 10:31 06/03/21 10:35 06/03/21 10:46 Temperature 97.1 F L Pulse Rate 101 H 102 H 94 H Respiratory Rate 17 18 17 Blood Pressure 158/86 H 157/71 H Pulse Oximetry 100 99 100 06/03/21 11:00 06/03/21 11:15 06/03/21 11:30 Temperature Pulse Rate 80 75 78 Respiratory Rate 13 19 15 Blood Pressure 145/72 H 142/71 H 142/74 H Pulse Oximetry 98 98 99 06/03/21 11:45 06/03/21 12:00 06/03/21 12:30 Temperature Pulse Rate 70 71 68 Respiratory Rate 17 21 16 Blood Pressure 132/79 132/84 Pulse Oximetry 96 98 98 06/03/21 13:00 06/03/21 13:30 06/03/21 13:58 Temperature Pulse Rate 67 65 69 Respiratory Rate 18 21 21 Blood Pressure 136/71 Pulse Oximetry 98 100 100 06/03/21 14:00 06/03/21 14:16 06/03/21 14:30 Temperature Pulse Rate 69 69 67 Respiratory Rate 23 21 20 Blood Pressure 136/74 152/67 H 155/74 H Pulse Oximetry 100 98 99 06/03/21 14:46 06/03/21 15:00 06/03/21 15:30 Temperature Pulse Rate 70 81 82 Respiratory Rate 27 H 22 23 Blood Pressure 161/79 H Pulse Oximetry 99 99 99 06/03/21 15:55 06/03/21 16:00 06/03/21 16:30 Temperature Pulse Rate 84 79 78 Respiratory Rate 18 18 19 Blood Pressure 148/93 H Pulse Oximetry 99 98 97 06/03/21 16:57 06/03/21 18:06 Temperature Pulse Rate 92 H Respiratory Rate 20 Blood Pressure 151/81 H Pulse Oximetry 98 <Galina Farnsworth MD - Last Filed: 06/03/21 18:30> Orders Ordered: ED Orders 06/03/21 10:38 XR chest 1V Stat 06/03/21 10:39 EKG-12 Lead Stat 06/03/21 10:49 Complete Blood Count AUTO DIFF Stat Comprehensive Metabolic Panel Stat D Dimer Stat Lipase Stat Magnesium Stat NT-proBNP (BNP-Adult 18+) Stat Troponin & CK Cardiac Panel Stat 06/03/21 15:13 CT angio chest PE protocol Stat Discontinued Medications Al Hydrox/Mg Hydrox/Simethicone 20 ml/ Lidocaine HCl 15 ml 0 ml PO NOW ONE Stop: 06/03/21 14:48 Last Admin: 06/03/21 15:24 Dose: 15 ml Documented by: ROBERT Famotidine (Famotidine 20 Mg/2 Ml Vial) 20 mg IV NOW VLAD Last Admin: 06/03/21 15:33 Dose: 20 mg Documented by: ROBERT Vital Signs Vital signs: Vital Signs - 8 hr 06/03/21 10:31 06/03/21 10:35 06/03/21 10:46 Temperature 97.1 F L Pulse Rate 101 H 102 H 94 H Respiratory Rate 17 18 17 Blood Pressure 158/86 H 157/71 H Pulse Oximetry 100 99 100 06/03/21 11:00 06/03/21 11:15 06/03/21 11:30 Temperature Pulse Rate 80 75 78 Respiratory Rate 13 19 15 Blood Pressure 145/72 H 142/71 H 142/74 H Pulse Oximetry 98 98 99 06/03/21 11:45 06/03/21 12:00 06/03/21 12:30 Temperature Pulse Rate 70 71 68 Respiratory Rate 17 21 16 Blood Pressure 132/79 132/84 Pulse Oximetry 96 98 98 06/03/21 13:00 06/03/21 13:30 06/03/21 13:58 Temperature Pulse Rate 67 65 69 Respiratory Rate 18 21 21 Blood Pressure 136/71 Pulse Oximetry 98 100 100 06/03/21 14:00 06/03/21 14:16 06/03/21 14:30 Temperature Pulse Rate 69 69 67 Respiratory Rate 23 21 20 Blood Pressure 136/74 152/67 H 155/74 H Pulse Oximetry 100 98 99 06/03/21 14:46 06/03/21 15:00 06/03/21 15:30 Temperature Pulse Rate 70 81 82 Respiratory Rate 27 H 22 23 Blood Pressure 161/79 H Pulse Oximetry 99 99 99 06/03/21 15:55 06/03/21 16:00 06/03/21 16:30 Temperature Pulse Rate 84 79 78 Respiratory Rate 18 18 19 Blood Pressure 148/93 H Pulse Oximetry 99 98 97 06/03/21 16:57 06/03/21 18:06 Temperature Pulse Rate 92 H Respiratory Rate 20 Blood Pressure 151/81 H Pulse Oximetry 98 MDM - Arrhythmia/Palpitations <Nilson Wright PA-C - Last Filed: 06/03/21 18:03> Lab Data Lab results narrative: D-dimer elevated. All other labs within normal limits. Result diagrams: 06/03/21 10:49 06/03/21 10:49 Labs: Lab Results 06/03/21 06/03/21 06/03/21 Range/Units 10:49 10:49 10:49 WBC 7.1 (4.5-11.0) X10^3/uL RBC 4.85 (4.0-5.2) X10^6/uL Hgb 14.1 (12.0-16.0) g/dL Hct 41.9 (36-46) % MCV 86.3 (80-100) fL MCH 29.0 (26-34) PG MCHC 33.6 (30-36) % RDW 12.9 (11.6-14.8) % Plt Count 205 (150-400) X10^3/uL Neut % (Auto) 66.2 (50-75) % Lymph % (Auto) 24.2 L (25-40) % [place] % (Auto) 7.7 (3-14) % Eos % (Auto) 1.2 L (2-4) % Baso % (Auto) 0.7 (0-2) % Neut # (Auto) 4700 (5149-8741) /uL Lymph # (Auto) 1700 (6786-7982) /uL [place] # (Auto) 500 (0-900) /uL Eos # (Auto) 100 (0-450) /uL Baso # (Auto) 0 (0-100) /uL D-Dimer 492 H (<230) ng/mL Sodium 139 (137-145) mmol/L Potassium 3.8 (3.4-5.1) mmol/L Chloride 106 (98-107) mmol/L Carbon Dioxide 25 (22-32) mmol/L BUN 14 (7-17) mg/dL Creatinine 0.89 (0.52-1.04) mg/dL Estimated GFR > 60.0 (>60) mL/min BUN/Creatinine Ratio 15.7 (6-22) Glucose 122 H (70-100) mg/dL Calcium 10.9 H (8.4-10.2) mg/dL Magnesium 2.1 (1.6-2.3) mg/dL Total Bilirubin 0.6 (0.2-1.3) mg/dL AST 21 (14-36) IU/L ALT 28 (<35) IU/L Alkaline Phosphatase 54 (38-126) U/L Total Creatine Kinase 42 (30-135) U/L CK-MB (CK-2) TNP CK-MB (CK-2) Rel Index TNP Troponin I < 0.012 (0.01-0.034) ng/mL NT-Pro-B Natriuret Pep (<125) pg/mL Total Protein 8.0 (6.3-8.2) g/dL Albumin 4.7 (3.5-5.0) g/dL Globulin 3.3 (1.7-4.1) g/dL Albumin/Globulin Ratio 1.4 (1.0-2.8) Lipase 68 (23-300) U/L 06/03/21 Range/Units 10:49 WBC (4.5-11.0) X10^3/uL RBC (4.0-5.2) X10^6/uL Hgb (12.0-16.0) g/dL Hct (36-46) % MCV (80-100) fL MCH (26-34) PG MCHC (30-36) % RDW (11.6-14.8) % Plt Count (150-400) X10^3/uL Neut % (Auto) (50-75) % Lymph % (Auto) (25-40) % [place] % (Auto) (3-14) % Eos % (Auto) (2-4) % Baso % (Auto) (0-2) % Neut # (Auto) (8949-9283) /uL Lymph # (Auto) (6691-8192) /uL [place] # (Auto) (0-900) /uL Eos # (Auto) (0-450) /uL Baso # (Auto) (0-100) /uL D-Dimer (<230) ng/mL Sodium (137-145) mmol/L Potassium (3.4-5.1) mmol/L Chloride (98-107) mmol/L Carbon Dioxide (22-32) mmol/L BUN (7-17) mg/dL Creatinine (0.52-1.04) mg/dL Estimated GFR (>60) mL/min BUN/Creatinine Ratio (6-22) Glucose (70-100) mg/dL Calcium (8.4-10.2) mg/dL Magnesium (1.6-2.3) mg/dL Total Bilirubin (0.2-1.3) mg/dL AST (14-36) IU/L ALT (<35) IU/L Alkaline Phosphatase (38-126) U/L Total Creatine Kinase (30-135) U/L CK-MB (CK-2) CK-MB (CK-2) Rel Index Troponin I (0.01-0.034) ng/mL NT-Pro-B Natriuret Pep 55 (<125) pg/mL Total Protein (6.3-8.2) g/dL Albumin (3.5-5.0) g/dL Globulin (1.7-4.1) g/dL Albumin/Globulin Ratio (1.0-2.8) Lipase (23-300) U/L Imaging Data CT scan - chest: Radiologist's Impresson: ADDENDUMThis report includes an Addendum and supersedes previous reports for this exam. ? ? ? PROCEDURE:? CT ANGIO CHEST PE PROTOCOL ? INDICATIONS:? Elevated d-dimer, palpitations, CP ? TECHNIQUE:? After the administration of intravenous contrast, 2 mm thick sections acquired from the pulmonary apices to the posterior costophrenic angles.? 3-dimensional maximum intensity projection (MIP) coronal and sagittal reformats were then acquired through the thorax.? For radiation dose reduction, the following was used:? automated exposure control, adjustment of mA and/or kV according to patient size.? ? COMPARISON:? None. ? FINDINGS:? Image quality:? Suboptimal..? ? Pulmonary arteries:? Beam hardening artifact and mixing artifact due to poor bolus timing makes this study nearly nondiagnostic for branch artery embolus.? There is no saddle embolus, but a peripheral embolus is not excluded.? There is no intraventricular septal bowing in the heart or pulmonary artery dilatation to suggest pulmonary artery hypertension. ? Lungs and pleura:? Small ground-glass opacity is present medially in the right lower lobe.? No other consolidations or effusions.? There is a solid nodule in the lateral right costophrenic sulcus measuring 9 mm.? Peripheral airways are mildly and diffusely narrowed and there are occasional areas of bronchial wall thickening.? No bronchiectasis. ? Mediastinum:? Heart size is normal, without pericardial effusion there is mild bilateral hilar adenopathy demonstrated by confluent soft tissue in the hilar regions, right greater than left and mild AP window adenopathy.? Retroesophageal right subclavian artery.? Thoracic aorta is normal in caliber and enhancement.? Esophagus is normal in caliber, with a small hiatal hernia.? ? Bones and chest wall:? No suspicious bony lesions.? Ribs and thoracic spine appe ar intact throughout.? Thyroid gland is unremarkable.? No axillary or supraclavicular adenopathy.? ? Abdomen:? Visualized upper abdominal solid organs appear normal in the early arterial phase of enhancement.? ? IMPRESSION:? ? 1. Pulmonary embolus cannot be excluded secondary to suboptimal technique.? Recommend repeat imaging with increased technique and improved bolus timing. ? 2. 9 mm solid nodule at the right lung base.? 3-6 month follow-up chest CT is recommended to assess for growth. ? 3. Bilateral hilar and mediastinal adenopathy and mild airway narrowing may indicate infectious or inflammatory bronchitis. ? ? Dictated by: Melissa Machuca M.D. on 06/03/2021 at 15:56 ? ? Approved by: Melissa Machuca M.D. on 06/03/2021 at 16:09 ? ? ? ADDENDUM: ? The exam was repeated with good timing of the bolus.? The pulmonary arteries are well opacified and demonstrate no evidence of pulmonary artery embolism.? 2 nodules are noted, 1 in the right middle lobe series 5, image 160 of the 2nd scan and 1 measuring 9 mm series 5, image 212. ? IMPRESSION: 1. NO EVIDENCE OF PULMONARY ARTERY EMBOLISM. 2. 9 MILLIMETER NODULE IN THE RIGHT LUNG BASE. 3. 5 MILLIMETER NODULE IN THE RIGHT MIDDLE LOBE.? Recommend follow-up CT in 3-6 months as above. ? Dictated by: Jj Roberson M.D. on 06/03/2021 at 17:33 ? ? Approved by: Jj Roberson M.D. on 06/03/2021 at 17:38 ? ECG Data Interpretation: Normal sinus rhythm, no acute ST-T changes, no axis deviation MDM Narrative Medical decision making narrative: 51-year-old female with no reported past medical history presents to the ED with 1 week of palpitations. Concern for ACS versus heart failure versus PE versus arrhythmia versus GERD. Will order chest x-ray, EKG, labs, troponin, BNP, D- dimer. Will give GI cocktail, Pepcid AC for symptoms. Will reassess. D-dimer was elevated. CT PE negative. Workup negative. ED return precautions discussed with patient. Patient verbalized understanding. Discharged patient. <Galina Farnsworth MD - Last Filed: 06/03/21 18:30> Lab Data Labs: Lab Results 06/03/21 06/03/21 06/03/21 Range/Units 10:49 10:49 10:49 WBC 7.1 (4.5-11.0) X10^3/uL RBC 4.85 (4.0-5.2) X10^6/uL Hgb 14.1 (12.0-16.0) g/dL Hct 41.9 (36-46) % MCV 86.3 (80-100) fL MCH 29.0 (26-34) PG MCHC 33.6 (30-36) % RDW 12.9 (11.6-14.8) % Plt Count 205 (150-400) X10^3/uL Neut % (Auto) 66.2 (50-75) % Lymph % (Auto) 24.2 L (25-40) % [place] % (Auto) 7.7 (3-14) % Eos % (Auto) 1.2 L (2-4) % Baso % (Auto) 0.7 (0-2) % Neut # (Auto) 4700 (5359-6145) /uL Lymph # (Auto) 1700 (8897-0432) /uL [place] # (Auto) 500 (0-900) /uL Eos # (Auto) 100 (0-450) /uL Baso # (Auto) 0 (0-100) /uL D-Dimer 492 H (<230) ng/mL Sodium 139 (137-145) mmol/L Potassium 3.8 (3.4-5.1) mmol/L Chloride 106 (98-107) mmol/L Carbon Dioxide 25 (22-32) mmol/L BUN 14 (7-17) mg/dL Creatinine 0.89 (0.52-1.04) mg/dL Estimated GFR > 60.0 (>60) mL/min BUN/Creatinine Ratio 15.7 (6-22) Glucose 122 H (70-100) mg/dL Calcium 10.9 H (8.4-10.2) mg/dL Magnesium 2.1 (1.6-2.3) mg/dL Total Bilirubin 0.6 (0.2-1.3) mg/dL AST 21 (14-36) IU/L ALT 28 (<35) IU/L Alkaline Phosphatase 54 (38-126) U/L Total Creatine Kinase 42 (30-135) U/L CK-MB (CK-2) TNP CK-MB (CK-2) Rel Index TNP Troponin I < 0.012 (0.01-0.034) ng/mL NT-Pro-B Natriuret Pep (<125) pg/mL Total Protein 8.0 (6.3-8.2) g/dL Albumin 4.7 (3.5-5.0) g/dL Globulin 3.3 (1.7-4.1) g/dL Albumin/Globulin Ratio 1.4 (1.0-2.8) Lipase 68 (23-300) U/L 06/03/21 Range/Units 10:49 WBC (4.5-11.0) X10^3/uL RBC (4.0-5.2) X10^6/uL Hgb (12.0-16.0) g/dL Hct (36-46) % MCV (80-100) fL MCH (26-34) PG MCHC (30-36) % RDW (11.6-14.8) % Plt Count (150-400) X10^3/uL Neut % (Auto) (50-75) % Lymph % (Auto) (25-40) % [place] % (Auto) (3-14) % Eos % (Auto) (2-4) % Baso % (Auto) (0-2) % Neut # (Auto) (8575-4633) /uL Lymph # (Auto) (2090-4736) /uL [place] # (Auto) (0-900) /uL Eos # (Auto) (0-450) /uL Baso # (Auto) (0-100) /uL D-Dimer (<230) ng/mL Sodium (137-145) mmol/L Potassium (3.4-5.1) mmol/L Chloride (98-107) mmol/L Carbon Dioxide (22-32) mmol/L BUN (7-17) mg/dL Creatinine (0.52-1.04) mg/dL Estimated GFR (>60) mL/min BUN/Creatinine Ratio (6-22) Glucose (70-100) mg/dL Calcium (8.4-10.2) mg/dL Magnesium (1.6-2.3) mg/dL Total Bilirubin (0.2-1.3) mg/dL AST (14-36) IU/L ALT (<35) IU/L Alkaline Phosphatase (38-126) U/L Total Creatine Kinase (30-135) U/L CK-MB (CK-2) CK-MB (CK-2) Rel Index Troponin I (0.01-0.034) ng/mL NT-Pro-B Natriuret Pep 55 (<125) pg/mL Total Protein (6.3-8.2) g/dL Albumin (3.5-5.0) g/dL Globulin (1.7-4.1) g/dL Albumin/Globulin Ratio (1.0-2.8) Lipase (23-300) U/L Discharge Plan Departure Patient Disposition: Home Clinical Impression: Chest pain Instructions: DI for Arrhythmias Activity Restrictions/Additional Instructions: You were evaluated in the ED today for palpitations. You workup including EKG, chest x-ray, labs, CT chest were normal. Return to the ED if your symptoms worsen, you experience chest pain, shortness of breath. Please follow-up with your PCP. Prescriptions: No Action levocetirizine [Xyzal] 5 mg tablet 2.5 mg PO DAILY PRN (Reason: Allergies) 0RF esomeprazole magnesium [Nexium] 40 MG capsule,delayed release(DR/EC) 40 mg PO QDAY Qty: 0 0RF Pseudoephedrine Hydrochlorid (#SUDAFED) 60 mg PO PRN Qty: 0 0RF meclizine 25 mg Capsule 25 mg PO PRN PRN (Reason: Dizziness) Qty: 0 0RF cholecalciferol (vitamin D3) [Vitamin D3] 25 mcg (1,000 unit) Capsule 25 mcg PO DAILY Qty: 0 0RF Acetaminophen/Aspirin/Caffei (EXCEDRIN EXTRA STRENGTH 250 MG-250 MG-65 MG~) 2 2 PO PRN Qty: 0 0RF calcium carbonate 500 mg calcium (1,250 mg) Tablet,Chewable 500 mg PO DAILY PRN (Reason: GI Upset) Qty: 0 0RF vitamin B complex Capsule 1 cap PO DAILY Qty: 0 0RF Mirena 1 EACH intrauterine device 52 mg INTRAU CONT Qty: 0 0RF Referrals: Namrata Mendez MD [Primary Care Provider] - <Galina Farnsworth MD - Last Filed: 06/03/21 18:30> Cosign ED Attending Coschaitanyaature Attestation: I was immediately available in the department for consultation throughout this patient's visit. I agree with documentation as above. Galina Farnsworth MD
--- NOTE | 2021-06-03 15:13 | DI.CT.S_ITS ---
PROCEDURE: CT ANGIO CHEST PE PROTOCOL INDICATIONS: Elevated d-dimer, palpitations, CP TECHNIQUE: After the administration of intravenous contrast, 2 mm thick sections acquired from the pulmonary apices to the posterior costophrenic angles. 3-dimensional maximum intensity projection (MIP) coronal and sagittal reformats were then acquired through the thorax. For radiation dose reduction, the following was used: automated exposure control, adjustment of mA and/or kV according to patient size. COMPARISON: None. FINDINGS: Image quality: Suboptimal.. Pulmonary arteries: Beam hardening artifact and mixing artifact due to poor bolus timing makes this study nearly nondiagnostic for branch artery embolus. There is no saddle embolus, but a peripheral embolus is not excluded. There is no intraventricular septal bowing in the heart or pulmonary artery dilatation to suggest pulmonary artery hypertension. Lungs and pleura: Small ground-glass opacity is present medially in the right lower lobe. No other consolidations or effusions. There is a solid nodule in the lateral right costophrenic sulcus measuring 9 mm. Peripheral airways are mildly and diffusely narrowed and there are occasional areas of bronchial wall thickening. No bronchiectasis. Mediastinum: Heart size is normal, without pericardial effusion there is mild bilateral hilar adenopathy demonstrated by confluent soft tissue in the hilar regions, right greater than left and mild AP window adenopathy. Retroesophageal right subclavian artery. Thoracic aorta is normal in caliber and enhancement. Esophagus is normal in caliber, with a small hiatal hernia. Bones and chest wall: No suspicious bony lesions. Ribs and thoracic spine appear intact throughout. Thyroid gland is unremarkable. No axillary or supraclavicular adenopathy. Abdomen: Visualized upper abdominal solid organs appear normal in the early arterial phase of enhancement. IMPRESSION: 1. Pulmonary embolus cannot be excluded secondary to suboptimal technique. Recommend repeat imaging with increased technique and improved bolus timing. 2. 9 mm solid nodule at the right lung base. 3-6 month follow-up chest CT is recommended to assess for growth. 3. Bilateral hilar and mediastinal adenopathy and mild airway narrowing may indicate infectious or inflammatory bronchitis. Dictated by: Melissa Machuca M.D. on 06/03/2021 at 15:56 Approved by: Melissa Machuca M.D. on 06/03/2021 at 16:09
[2021-06-03 15:16] LABS: NT-proBNP (BNP-Adult 18+) 55 pg/mL (<125)
[2021-06-03] MEDS: MAG HYDROX/ALUMINUM/SIMETH SUS 20 ML, LIDOCAINE VISCOUS 2% 15 ML PO (15:24)
[2021-06-03] MEDS: FAMOTIDINE 20 MG/2 ML VIAL IV (15:33)
== END 2021-06-03 18:08 | disposition home or self-care (01) ==
PROVIDERS: Emergency Medicine; Emergency Provider Student in an Organized Health Care Education/Training Program; PCP Student in an Organized Health Care Education/Training Program
DX: R07.9 Chest pain, unspecified (principal)
CPT/HCPCS: 36415; 71045; 71275; 80053; 82550; 83690; 83735; 83880; 84484; 85025; 85379; 93005; 96374; 99284; Q9967

== ENCOUNTER → 2021-06-13 16:49 | Outpatient (CLI) | payer OTHER, SELFPAY ==
[2021-06-13 18:05] LABS: D Dimer 398 ng/mL (<230)
== END ==
PROVIDERS: PCP Student in an Organized Health Care Education/Training Program; Referring Provider Student in an Organized Health Care Education/Training Program; Visit Provider Student in an Organized Health Care Education/Training Program
DX: R79.89 Other specified abnormal findings of blood chemistry (principal)
CPT/HCPCS: 36415; 85379

== ENCOUNTER → 2021-06-27 13:43 | Outpatient (CLI) | payer OTHER, SELFPAY ==
--- NOTE | 2021-06-27 | DI.ECHO.S_ITS ---
[place] [facility] +---------+ : : [address] : [address] : : : : [id number] : : : : Phone: [phone]+ Echocardiogram Report + + :Name: CY TORREZ Study Date: 06/27/2021 Height: 65.5 in: :[facility] ReadingLocation: Weight: 309 lb : : Gender: Female BSA: 2.4 m2 : :: 1970 Age: 51 yrs BP: 145/93 mmHg: :Reason For Study: Palpitations : :Ordering Physician: : :MYRTLE Performed By: Moy Lynn : :Referring: FEMI MARI : + + Interpretation Summary The study quality was technically difficult. The ejection fraction is estimated to be 55-60%. There are no obvious focal wall motion abnormalities noted but poor endocardial definition reduces the sensitivity for the detection of such. There is no significant valvular heart disease. Procedure: A two-dimensional transthoracic echocardiogram with color flow and Doppler was performed. There is no prior echocardiogram noted for this patient. The subcostal views were difficult to obtain and are suboptimal in quality. Fair image quality despite patient remaining supine. The study quality was technically difficult. The patient was in normal sinus rhythm during the exam. Left Ventricle: The left ventricle is normal in size and wall thickness. There is borderline proximal septal thickening noted. The ejection fraction is estimated to be 55-60%. There are no obvious focal wall motion abnormalities noted but poor endocardial definition reduces the sensitivity for the detection of such. Right Ventricle: The right ventricle is normal in size and function. Atria: The left atrial size is normal. Right atrium is small. There is no Doppler evidence for an interatrial shunt. Mitral Valve: The mitral valve is normal. There is trace mitral regurgitation. Aortic Valve: The aortic valve is trileaflet. The aortic valve opens well. There is trace aortic regurgitation. Tricuspid Valve: The tricuspid valve is normal. There is a trace or physiologic amount of tricuspid regurgitation. Pulmonary artery pressures cannot be estimated because of the lack of a measurable TR jet velocity but the IVC suggests a CVP of around 3 mmHg. Pulmonic Valve: The pulmonic valve is normal in structure and function. Great Vessels: The aortic root is normal size. The ascending aorta is normal in size. The aortic arch is normal in size. The IVC is of normal diameter and collapses greater than 50% with a sniff. This suggests a low right atrial pressure of 3 mm Hg. Pericardium/ Pleura There is no pericardial effusion. There is an anterior echo-free space consistent with a fat pad. There is no pleural effusion. MMode/2D Measurements & Calculations LVIDd: 4.4 cm LVOT diam: 2.1 cm LVIDs: 2.1 cm Ao root diam: 3.3 cm FS: 52.3 % asc Aorta Diam: 3.1 cm IVSd: 1.0 cm Ao Arch Diam (Prox Trans): 2.8 cm LVPWd: 0.90 cm LV hahn. diameter/BSA (cm/m^2): 1.8 LV sys. diameter/BSA (cm/m^2): 0.88 LA A2 area: 20.9 cm2 RA long axis: 4.7 cm LA A4 area: 22.3 cm2 LA length (vol): 5.5 cm LA vol: 71.9 ml LA vol index: 30.0 ml/m2 LVLs ap4: 6.1 cm LVLd ap2: 7.7 cm LVLs ap2: 5.8 cm TAPSE_phl: 2.2 cm Doppler Measurements & Calculations Ao V2 max: 139.0 cm/sec LVOT Max Fernando: 127.0 cm/sec Ao V2 mean: 103.0 cm/sec LV V1 max P.5 mmHg Ao max P.0 mmHg LV V1 VTI: 24.5 cm Ao mean P.0 mmHg TONY(I,D): 3.1 cm2 Ao V2 VTI: 27.1 cm TONY(V,D): 3.2 cm2 sev ratio: 0.90 TONY indexed to BSA (cm^2/m^2): 1.3 MV E max fernando: 98.5 cm/sec SV(LVOT): 84.9 ml MV A max fernando: 88.1 cm/sec MV E/A: 1.1 Med Peak E' Fernando: 10.3 cm/sec E/E' med: 9.6 Lat Peak E' Fernando: 19.8 cm/sec E/E' lat: 5.0 E/e' average: 7.3 MV dec time: 0.17 sec AV VR_phl: 0.91 MV P1/2t-pr_phl: 49.0 msec TONY(VTI)/BSA_phl: 1.3 Reading Physician:07:35 PM
== END ==
PROVIDERS: PCP Student in an Organized Health Care Education/Training Program; Referring Provider Student in an Organized Health Care Education/Training Program; Visit Provider Student in an Organized Health Care Education/Training Program
DX: R00.2 Palpitations (principal)
CPT/HCPCS: 93306

== ENCOUNTER → 2021-07-30 07:42 | Outpatient (CLI) | payer OTHER, SELFPAY | PROVIDERS: PCP Student in an Organized Health Care Education/Training Program; Visit Provider Nurse Practitioner Family | DX: J35.1 Hypertrophy of tonsils (principal) | CPT/HCPCS: 87070; 87077; 87147 ==

== ENCOUNTER → 2021-09-16 15:41 | Outpatient (CLI) | payer OTHER, SELFPAY ==
--- NOTE | 2021-09-16 | DI.CT.S_ITS ---
PROCEDURE: CT CHEST WO CON INDICATIONS: Solitary pulmonary nodule TECHNIQUE: Noncontrast 5 mm thick sections acquired from the pulmonary apices to the posterior costophrenic angles. 1 mm lung window, 5 mm thick coronal and sagittal and 7 mm axial MIP reformats were then acquired. For radiation dose reduction, the following was used: automated exposure control, adjustment of mA and/or kV according to patient size. COMPARISON: [facility], CR, XR CHEST 1V, 06/03/2021, 10:38. [facility], CT, CT ANGIO CHEST PE PROTOCOL, 06/03/2021, 15:24. FINDINGS: Image quality: Excellent. Lungs and pleura: On the prior study, there was a inferior right lower lobe pulmonary nodule seen. This pulmonary nodule is not definitely seen on the current study. No new pulmonary nodules are seen elsewhere. The previously seen ground-glass opacity within the right lower lobe medially is also much improved compared to the prior examination and attributed to mild persistent atelectasis. Within the right middle lobe, there is seen a 4 mm pulmonary nodule, as on series 3, image 151, which is decreased in size compared to the prior examination. No acute air space opacities. No pleural effusions or pneumothorax. Central and peripheral airways are patent and normal in caliber. Mediastinum: Heart size is normal. No pericardial effusion. No mediastinal adenopathy by size criteria. Thoracic aorta and central pulmonary arteries are normal in size. Esophagus is normal in caliber. There is a small hiatal hernia. Bones and chest wall: No suspicious bony lesions. No vertebral body compression fractures. Accentuated thoracic kyphosis is seen. Age-appropriate bony degenerative changes are seen. No axillary or supraclavicular adenopathy by size criteria. Thyroid gland demonstrates no significant noncontrast abnormality. Abdomen: Visualized upper abdominal solid organs and bowel loops appear normal in the absence of contrast. IMPRESSION: The previously seen right lower lobe pulmonary nodule is no longer seen. 4 mm pulmonary nodule within the right middle lobe, which is decreased in size compared to the prior and considered to be benign. Improved right lower lobe ground-glass opacity seen, which is attributed to mild persistent atelectasis. No specific imaging follow-up is recommended, although attention should be paid to these areas on any future follow-up studies. Incidental note is made of: Small hiatal hernia Dictated by: Deshaun Oliva M.D. on 09/16/2021 at 17:31 Approved by: Deshaun Oliva M.D. on 09/16/2021 at 17:34
== END ==
PROVIDERS: PCP Student in an Organized Health Care Education/Training Program; Referring Provider Student in an Organized Health Care Education/Training Program; Visit Provider Student in an Organized Health Care Education/Training Program
DX: R91.1 Solitary pulmonary nodule (principal); K44.9 Diaphragmatic hernia without obstruction or gangrene; J98.11 Atelectasis
CPT/HCPCS: 71250

== ENCOUNTER → 2022-02-19 16:07 | Outpatient (CLI) | payer OTHER, SELFPAY ==
--- NOTE | 2022-02-19 16:08 | DI.MG.S_ITS ---
BILATERAL DIGITAL SCREENING MAMMOGRAM 3D/2D WITH CAD: 02/19/2022 CLINICAL: Routine screening. Comparison is made to exams dated: 02/16/2020 mammogram, 09/19/2016 mammogram, and 04/29/2018 mammogram - [facility]. There are scattered areas of fibroglandular density in both breasts (category b / 25%-50% glandular tissue). Current study was also evaluated with a Computer Aided Detection (CAD) system. No significant masses, calcifications, or other findings are seen in either breast. There has been no significant interval change. IMPRESSION: NEGATIVE There is no mammographic evidence of malignancy. A 1 year screening mammogram is recommended. Based on the Tyrer Cuzick model (a risk assessment model) the patient's lifetime risk is 7.1% and her 10 year risk is 1.6%. According to the ACR, ACS, and NCCN guidelines, an annual breast MRI exam along with mammogram is recommended if the patient's lifetime risk is 20% or greater. This exam was interpreted at Station ID: [id number]. NOTE: For mammograms, a report in lay terms will be sent to the patient. Approximately 15% of breast malignancies will not be visualized mammographically. In the management of a palpable breast mass, a negative mammogram must not discourage biopsy of a clinically suspicious lesion. Electronically Signed By: Benji Goodrich M.D., jr/dipesh:02/20/2022 12:26:04 copy to: Manohar Fox letter sent: Normal Exam ACR BI-RADS Category 1: Negative 3341F
== END ==
PROVIDERS: PCP Student in an Organized Health Care Education/Training Program; Referring Provider Family Medicine; Visit Provider Family Medicine
DX: Z12.31 Encounter for screening mammogram for malignant neoplasm of breast (principal)
CPT/HCPCS: 77063; 77067

== ENCOUNTER → 2022-03-30 09:55 | Outpatient (CLI) | payer OTHER, SELFPAY ==
[2022-03-30 12:05] LABS: Influenza A - CEPHEID Flu A POSITIVE (NEGATIVE); Influenza B - CEPHEID Flu B NEGATIVE (NEGATIVE); Respiratory Syncytial Virus Negative (Negative)
[2022-03-30 12:10] LABS: COVID-19 CEPHEID 4-PLEX PCR Negative (Negative)
== END ==
PROVIDERS: PCP Student in an Organized Health Care Education/Training Program; Visit Provider Physician Assistant
DX: J02.9 Acute pharyngitis, unspecified (principal); R05.9 Cough, unspecified
CPT/HCPCS: 0241U; 87070; 87077; 87147

== ENCOUNTER → 2022-05-22 09:29 | Outpatient (CLI) | payer OTHER, SELFPAY ==
[2022-05-22 11:06] LABS: COVID19 -Nasal RAPID Negative (Negative)
== END ==
PROVIDERS: PCP Family Medicine; Visit Provider Surgery
DX: Z20.822 Contact with and (suspected) exposure to COVID-19 (principal); Z01.812 Encounter for preprocedural laboratory examination
CPT/HCPCS: 87635; C9803

== ENCOUNTER 2022-05-23 08:00 | Day surgery (SDC) | payer OTHER, SELFPAY ==
--- NOTE | 2022-05-23 | PATH_ITS ---
[facility] Accession Number: [id number] No. of containers..01 Tissue . 01 Material submitted: . colon - ASCENDING COLON . 01 Clinical history: . SCREENING COLONOSCOPY . 01 Diagnosis: Ascending Colon, Polyp, Biopsy: Colonic mucosa with a benign lymphoid aggregate and submucosal mature adipose tissue, consistent with benign lipoma. Additional levels were examined. Negative for atypia, epithelial dysplasia and malignancy. MRV 05/29/2022 1226 Local . 01 Electronically signed: . Fernanda Pierre MD, Pathologist NPI- [id number] . 01 Gross description: . ASCENDING COLON: Received in formalin are multiple fragment(s) of dillard, soft tissue measuring 0.1 x 0.1 x 0.1 cm to 1.0 x 0.5 x 0.5 cm submitted entirely in 1 cassette(s) /NICK 05/26/2022 1845 Local . 01 Pathologist provided ICD-10: K63.5 . 01 CPT . 688000 Specimen Comment: A courtesy copy of this report has been sent to [facility] Performed at: 01 [facility] [address] [place] [address] [address], [place], [place] [id number] MD Serg Crain MD Phone: [phone]
--- NOTE | 2022-05-23 08:31 | SUR.PREOP ---
0502 Dr Lew notified that pt had poor prep. Dr Lew ordered and enema. Pt in bathroom completing enema.
[2022-05-23] MEDS: LACTATED RINGERS 1,000 ML 84 ML IV (08:35)
[2022-05-23 08:44] VITALS: BP 136/96; PULSE 90; RESP 16; TEMP 36.3; O2SAT 100; BMI 48.4
--- NOTE | 2022-05-23 08:52 | PM.HP.1 ---
History of Present Illness History of Present Illness Chief complaint: SCREENING COLONOSCOPY Narrative: Ms. Doll presents today for a screening colonoscopy having been sent by her primary care doctor Jazmín. She has a history of IBS and so has had constipation and diarrhea for years ongoing she is really does not have regular bowel movements. She does have some hemorrhoids but has not had a lot of bleeding from them. She has no family history of colon cancer has never had a colonoscopy before. Father did have polyps. She is had some abdominal surgeries including a and a right oophorectomy and hernia repair. Presently she is complaining about right upper quadrant pain and is aware that she has some gallbladder issues for which she would like to have further work up. She did not tolerate the prep very well and had some vomiting. 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 IBS (irritable bowel syndrome) Tonsillitis with exudate Viral URI Surgical History Status post delivery (12/25/03) Status post delivery (12/19/05) Status post ovarian cystectomy Status post right oophorectomy Family & Social History Social History: household members spouse Tobacco & Substance use: Smoking Status Never smoker alcohol intake current alcohol intake frequency holiday/special occasion Substance Use Type does not use Meds Home Medications and Allergies Home Medications Medication Instructions Recorded Confirmed Type Pseudoephedrine Hydrochlorid 60 mg PO PRN ##0 07/28/11 05/23/22 History (#SUDAFED) esomeprazole magnesium 40 mg 40 mg PO QDAY ##0 07/28/11 05/23/22 History capsule,delayed release (Nexium) Acetaminophen/Aspirin/Caffei 2 2 PO PRN ##0 05/21/12 05/23/22 History (EXCEDRIN EXTRA STRENGTH 250 MG-250 MG-65 MG~) cholecalciferol (vitamin D3) 25 25 mcg PO DAILY ##0 05/21/12 05/23/22 History mcg (1,000 unit) capsule (Vitamin D3) meclizine 25 mg capsule 25 mg PO PRN PRN Dizziness ##0 05/21/12 05/23/22 History calcium carbonate 500 mg calcium 500 mg PO DAILY PRN GI Upset ##0 08/19/12 05/23/22 History (1,250 mg) chewable tablet vitamin B complex 1 cap PO DAILY ##0 08/19/12 05/23/22 History levonorgestrel 20 mcg/24 hours (8 52 mg INTRAU CONT ##0 03/25/16 05/23/22 History yrs) 52 mg intrauterine device (Mirena) levocetirizine 5 mg tablet (Xyzal) 2.5 mg PO DAILY PRN Allergies 01/25/19 05/23/22 History sodium,potassium,mag sulfates 17.5 See Rx Instructions PO .COMPLEX 05/09/22 05/23/22 Rx gram-3.13 gram-1.6 gram oral soln #354 mL (Suprep Bowel Prep Kit) Flonase See Rx Instructions .Route .COMPLEX 05/23/22 05/23/22 History dexbrompheniramine ER 6 See Rx Instructions .Route .COMPLEX 05/23/22 05/23/22 History mg-pseudoephedrine 120 mg tablet,ext.rel.12 hr hyoscyamine 1.25 mg PO PRN Abdominal Discomfort 05/23/22 History Allergies Allergy/AdvReac Type Severity Reaction Status Date / Time ciprofloxacin [CIPROFLOXACIN] Allergy Mild HIVES Verified 03/30/22 09:56 benzoin [BENZOIN] Allergy Unknown Verified 03/30/22 09:56 oxycodone Allergy Unknown Nausea Verified 05/23/22 08:35 SKIN GLUE Allergy Unknown BLISTERS Uncoded 03/30/22 09:56 Exam Const General: cooperative and healthy appearing Nutritional Appearance: obese HENMT Head: normal to inspection Resp Effort & Inspection: normal respiratory effort and able to speak in complete sentences GI Palpation: soft and No tender Assessment & Plan Assessment and plan (1) Screening for colon cancer: Status: Acute Assessment & Plan narrative: I discussed risks benefits and alternatives of screening colonoscopy including but not limited to incomplete exam and perforation of the colon. Patient understands these risks and would like to proceed. Time Spent With Patient Critical Care time: I spent a total of [] minutes of critical care time on this patient's care today; this time is exclusive of procedural time.
[2022-05-23 10:13] VITALS: BP 150/91; PULSE 80; RESP 16; TEMP 36.3; O2SAT 100
[2022-05-23 10:18] VITALS: BP 150/91; PULSE 77; RESP 16; O2SAT 98
[2022-05-23 10:23] VITALS: BP 150/95; PULSE 88; RESP 16; O2SAT 98
--- NOTE | 2022-05-23 10:23 | P.OP.COLON_ITS ---
Procedure & Clinicians Study performed: Colonoscopy and biopsy Same procedure as scheduled: Yes Indications: Screening for colon cancer Surgeon: Catrachita Lew Procedure Notes Procedure in detail: Patient was taken to the endoscopy suite and placed in a left lateral decubitus position. A time-out was performed. With the help of Dr. Bergeron anesthesiologist conscious sedation was induced. A digital rectal exam was performed there were 2 large external hemorrhoids visible and no masses or strictures. The colonoscope was then introduced into the anal canal and advanced through to the cecum. Some maneuvers such as abdominal pressure and scope stiffening were required to intubate the cecum. A photograph was taken of the appendiceal orifice. The prep was excellent [place] bowel prep score 3. There was 1 polyp seen in the ascending colon which was snared and removed, and sent for pathology. There were no other polyps seen upon withdrawal withdrawal time was total of 20 minutes including biopsy time. There were a few scattered diverticula in the sigmoid colon. There were internal hemorrhoids upon retroflexion a photograph was obtained. Impression: Follow-up likely to be 7-10 years, if the pathology comes back as a tubular adenoma. Will follow-up pathology and make final recommendations
== END 2022-05-23 10:40 | disposition home or self-care (01) ==
PROVIDERS: PCP Family Medicine; Referring Provider Surgery; Visit Provider Surgery
PROC: 0DJD8ZZ Inspection of Lower Intestinal Tract, Via Natural or Artificial Opening Endoscopic (ICD-10-PCS; CPT 45378; principal; 2022-05-23 08:45)
DX: Z12.11 Encounter for screening for malignant neoplasm of colon (principal); Z83.71 Family history of colonic polyps; K57.30 Diverticulosis of large intestine without perforation or abscess without bleeding
CPT/HCPCS: 45390; 81025; J2704

== ENCOUNTER 2022-08-28 11:53 | Emergency (ER) | payer OTHER, SELFPAY ==
[2022-08-28 12:00] VITALS: BP 165/107; PULSE 109; RESP 18; TEMP 37.1; O2SAT 100; BMI 48.1
--- NOTE | 2022-08-28 12:56 | PC.NURSE ---
Verified with provider Crew that order was correct for IM epinephrine at 05.mg.
--- NOTE | 2022-08-28 12:57 | ED_ITS ---
HPI - Allergic Reaction <Fernanda Lazaro, [facility] - Last Filed: 08/28/22 14:27> General Chief complaint: Allergic Reaction Stated complaint: Rxn to meds Time Seen by Provider: 08/28/22 12:23 Source: patient Mode of arrival: Ambulatory History of Present Illness HPI narrative: This is a 52-year-old female with history mild asthma who presents to the emergency department with tightness in her throat, hives, feeling short of breath and concern for allergic reaction. Patient has been on Bactrim for the last 4 days for UTI. Patient states that she started on Macrobid x5 days initially but her symptoms recurred after 5 days, she started taking a generic brand of azo with methenamine in it and states that she felt hot and after this but was also started on Bactrim 4 days ago. She states that her symptoms of thr oat tightness, itching, hot skin and allergic reaction have only gotten worse over the last 4 days. She states that her brothers allergic to sulfa. States that she is never had sulfa in the past and does not remember if she is had this antibiotic. States that her symptoms of UTI improved while on Macrobid but then came back after it was completed. She has taken 50 mg of Benadryl today at 06:00. States that her itching is her worst symptom, her PCP prescribed for her hydroxyzine and she has been using this in addition to it but still has ongoing symptoms. She states that her UTI symptoms have improved however. Denies flank pain, fever chills but states that her skin is itchy and hot, throat feels scratchy and tight. She used her son's albuterol inhaler prior to coming in and states that it helped. Related Data Home Medications Medication Instructions Recorded Confirmed Pseudoephedrine Hydrochlorid 60 mg PO PRN ##0 07/28/11 05/23/22 (#SUDAFED) esomeprazole magnesium 40 mg 40 mg PO QDAY ##0 07/28/11 05/23/22 capsule,delayed release (Nexium) Acetaminophen/Aspirin/Caffei 2 2 PO PRN ##0 05/21/12 05/23/22 (EXCEDRIN EXTRA STRENGTH 250 MG-250 MG-65 MG~) cholecalciferol (vitamin D3) 25 25 mcg PO DAILY ##0 05/21/12 05/23/22 mcg (1,000 unit) capsule (Vitamin D3) meclizine 25 mg capsule 25 mg PO PRN PRN Dizziness ##0 05/21/12 05/23/22 calcium carbonate 500 mg calcium 500 mg PO DAILY PRN GI Upset ##0 08/19/12 05/23/22 (1,250 mg) chewable tablet vitamin B complex 1 cap PO DAILY ##0 08/19/12 05/23/22 levonorgestrel 21 mcg/24 hours (8 52 mg INTRAU CONT ##0 03/25/16 05/23/22 yrs) 52 mg intrauterine device (Mirena) levocetirizine 5 mg tablet (Xyzal) 2.5 mg PO DAILY PRN Allergies 01/25/19 05/23/22 Flonase See Rx Instructions .Route .COMPLEX 05/23/22 05/23/22 dexbrompheniramine ER 6 See Rx Instructions .Route .COMPLEX 05/23/22 05/23/22 mg-pseudoephedrine 120 mg tablet,ext.rel.12 hr hyoscyamine 1.25 mg PO PRN Abdominal Discomfort 05/23/22 Previous Rx's Medication Instructions Recorded sodium,potassium,mag sulfates 17.5 See Rx Instructions PO .COMPLEX 05/09/22 gram-3.13 gram-1.6 gram oral soln #354 mL (Suprep Bowel Prep Kit) cephalexin 500 mg capsule 500 mg PO TID 5 days #15 caps 08/28/22 cetirizine 10 mg capsule 10 mg PO DAILY #30 caps 08/28/22 epinephrine 0.3 mg/0.3 mL 0.3 ml IM Q5-15M PRN anaphylaxis 08/28/22 injection, auto-injector #2 ea famotidine 20 mg tablet 20 mg PO DAILY #30 tabs 08/28/22 hydroxyzine HCl 25 mg tablet 25 mg PO TID PRN itching #30 tabs 08/28/22 methylprednisolone 4 mg tablets in See Rx Instructions PO .COMPLEX 08/28/22 a dose pack (Medrol (Lucio)) #21 ea Allergies Allergy/AdvReac Type Severity Reaction Status Date / Time ciprofloxacin [CIPROFLOXACIN] Allergy Mild HIVES Verified 08/28/22 12:07 benzoin [BENZOIN] Allergy Unknown Verified 08/28/22 12:07 oxycodone Allergy Unknown Nausea Verified 08/28/22 12:07 SKIN GLUE Allergy Unknown BLISTERS Uncoded 08/28/22 12:07 Review of Systems <EDWARD Kaye - Last Filed: 08/28/22 14:27> Review of Systems ROS Unobtainable: All systems reviewed & are unremarkable except as noted in HPI and below Patient History <EDWARD Kaye - Last Filed: 08/28/22 14:27> Medical History 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 General: Pleasant, sitting upright, flushed skin, in mild distress, endorses throat tightness without difficulty breathing, stridor, wheezing or difficulty breathing. She does not have drooling and can manage her secretions. HEENT: symmetrical facial expressions, moist mucous membranes, neck is supple, posterior pharynx with cobblestoning, no angioedema, airway is patent, uvula is midline CV: Tachycardic rate and regular rhythm, warm extremities Respiratory: normal work of breathing, no stridor, no increased work of breathing, without tachypnea, no wheezing or abnormal breath sounds throughout all saini patient endorses tightness GI: abdomen soft, nondistended, without CVA tenderness bilaterally. MSK: moves all extremities, no weakness, normal tone, ambulatory without deficit Skin: brisk capillary refill, flushed skin including cheeks, patient has a history rosacea, hives on patient's entire trunk, some on her arms and legs, pruritic Neuro: clear speech and normal cognition, A&O x3, GCS 15, no focal motor or sensation deficits Initial Vital Signs Initial Vital Signs: Vital Signs Temperature 98.7 F 08/28/22 12:00 Pulse Rate 109 H 08/28/22 12:00 Respiratory Rate 18 08/28/22 12:00 Blood Pressure 165/107 H 08/28/22 12:00 Pulse Oximetry 100 08/28/22 12:00 Oxygen Delivery Method Room Air 08/28/22 12:00 <Freeman Luz DO - Last Filed: 08/28/22 22:17> Initial Vital Signs Initial Vital Signs: Vital Signs Temperature 98.7 F 08/28/22 12:00 Pulse Rate 109 H 08/28/22 12:00 Respiratory Rate 18 08/28/22 12:00 Blood Pressure 165/107 H 08/28/22 12:00 Pulse Oximetry 100 08/28/22 12:00 Oxygen Delivery Method Room Air 08/28/22 12:00 Course <EDWARD Kaye - Last Filed: 08/28/22 14:27> Orders Ordered: Discontinued Medications Epinephrine HCl (Epinephrine 1 Mg/Ml) 0.5 mg IM NOW ONE Stop: 08/28/22 12:36 Last Admin: 08/28/22 12:58 Dose: 0.5 mg Documented By: OW Famotidine (Famotidine 20 Mg/2 Ml Vial) 20 mg IV NOW VLAD Last Admin: 08/28/22 12:59 Dose: 20 mg Documented By: OW Hydroxyzine Pamoate (Hydroxyzine Pamoate 25 Mg Capsule) 25 mg PO NOW ONE Stop: 08/28/22 12:39 Last Admin: 08/28/22 13:12 Dose: 25 mg Documented By: OW Sodium Chloride (Normal Saline 0.9%) 1,000 mls @ 1,000 mls/hr IV BOLUS ONE Stop: 08/28/22 13:34 Last Infusion: 08/28/22 14:10 Dose: 0 mls/hr Documented By: Admin: 08/28/22 13:10 Dose: 1,000 mls/hr Documented By: OW Loratadine (Loratadine 10 Mg Tablet) 10 mg PO NOW ONE Stop: 08/28/22 12:36 Last Admin: 08/28/22 13:20 Dose: 10 mg Documented By: AMU Methylprednisolone (Methylprednisolone 125 Mg/2 Ml Vial) 125 mg IV NOW ONE Stop: 08/28/22 12:36 Last Admin: 08/28/22 13:00 Dose: 125 mg Documented By: OW Vital Signs Vital signs: Vital Signs - 8 hr 08/28/22 12:00 08/28/22 13:00 08/28/22 13:30 Temperature 98.7 F Pulse Rate 109 H 105 H 95 H Respiratory Rate 18 24 20 Blood Pressure 165/107 H 168/88 H 135/62 Pulse Oximetry 100 100 100 Oxygen Delivery Method Room Air Room Air Room Air 08/28/22 14:10 Temperature Pulse Rate 94 H Respiratory Rate 20 Blood Pressure 143/68 H Pulse Oximetry 100 Oxygen Delivery Method Room Air <Freeman Luz DO - Last Filed: 08/28/22 22:17> Orders Ordered: Discontinued Medications Epinephrine HCl (Epinephrine 1 Mg/Ml) 0.5 mg IM NOW ONE Stop: 08/28/22 12:36 Last Admin: 08/28/22 12:58 Dose: 0.5 mg Documented By: OW Famotidine (Famotidine 20 Mg/2 Ml Vial) 20 mg IV NOW VLAD Last Admin: 08/28/22 12:59 Dose: 20 mg Documented By: OW Hydroxyzine Pamoate (Hydroxyzine Pamoate 25 Mg Capsule) 25 mg PO NOW ONE Stop: 08/28/22 12:39 Last Admin: 08/28/22 13:12 Dose: 25 mg Documented By: OW Sodium Chloride (Normal Saline 0.9%) 1,000 mls @ 1,000 mls/hr IV BOLUS ONE Stop: 08/28/22 13:34 Last Infusion: 08/28/22 14:10 Dose: 0 mls/hr Documented By: Admin: 08/28/22 13:10 Dose: 1,000 mls/hr Documented By: OW Loratadine (Loratadine 10 Mg Tablet) 10 mg PO NOW ONE Stop: 08/28/22 12:36 Last Admin: 08/28/22 13:20 Dose: 10 mg Documented By: AMU Methylprednisolone (Methylprednisolone 125 Mg/2 Ml Vial) 125 mg IV NOW ONE Stop: 08/28/22 12:36 Last Admin: 08/28/22 13:00 Dose: 125 mg Documented By: OW Vital Signs Vital signs: Vital Signs - 8 hr 08/28/22 12:00 08/28/22 13:00 08/28/22 13:30 Temperature 98.7 F Pulse Rate 109 H 105 H 95 H Respiratory Rate 18 24 20 Blood Pressure 165/107 H 168/88 H 135/62 Pulse Oximetry 100 100 100 Oxygen Delivery Method Room Air Room Air Room Air 08/28/22 14:10 Temperature Pulse Rate 94 H Respiratory Rate 20 Blood Pressure 143/68 H Pulse Oximetry 100 Oxygen Delivery Method Room Air MDM - Allergic Reaction <Fernanda Lazaro, [employer] - Last Filed: 08/28/22 14:27> Lab Data 08/28/22 12:50 08/28/22 12:50 Labs: Lab Results 08/28/22 08/28/22 08/28/22 Range/Units 12:41 12:50 12:50 WBC 8.1 (4.5-11.0) X10^3/uL RBC 5.06 (4.0-5.2) X10^6/uL Hgb 14.7 (12.0-16.0) g/dL Hct 44.0 (36-46) % MCV 86.9 (80-100) fL MCH 29.0 (26-34) PG MCHC 33.4 (30-36) % RDW 13.0 (11.6-14.8) % Plt Count 255 (150-400) X10^3/uL Neut % (Auto) 60.0 (50-75) % Lymph % (Auto) 26.0 (25-40) % [place] % (Auto) 9.8 (3-14) % Eos % (Auto) 3.2 (2-4) % Baso % (Auto) 1.0 (0-2) % Neut # (Auto) 4800 (1137-4766) /uL Lymph # (Auto) 2100 (5921-3815) /uL Hamilton # (Auto) 800 (0-900) /uL Eos # (Auto) 300 (0-450) /uL Baso # (Auto) 100 (0-100) /uL Sodium 138 (137-145) mmol/L Potassium 3.9 (3.4-5.1) mmol/L Chloride 104 (98-107) mmol/L Carbon Dioxide 22 (22-32) mmol/L BUN 17 (7-17) mg/dL Creatinine 0.96 (0.52-1.04) mg/dL Estimated GFR > 60 (>60) mL/min BUN/Creatinine Ratio 17.7 (6-22) Glucose 118 H (70-100) mg/dL Calcium 10.4 H (8.4-10.2) mg/dL Magnesium 2.4 H (1.6-2.3) mg/dL Total Bilirubin 0.5 (0.2-1.3) mg/dL AST 26 (14-36) IU/L ALT 36 H (<35) IU/L Alkaline Phosphatase 77 (38-126) U/L Total Protein 8.3 H (6.3-8.2) g/dL Albumin 4.9 (3.5-5.0) g/dL Globulin 3.4 (1.7-4.1) g/dL Albumin/Globulin Ratio 1.4 (1.0-2.8) Urine Color Yellow Urine Appearance Clear Urine pH 6.0 (4.5-8.0) Ur Specific [place] <=1.005 (1.000-1.035) Urine Protein Negative (Negative) Urine Glucose (UA) Negative (Negative) g/dL Urine Ketones Negative (NEGATIVE) Urine Occult Blood Negative (Negative) Urine Nitrate Negative (Negative) Urine Bilirubin Negative (NEGATIVE) Urine Urobilinogen 0.2 (0.2) E.U./dL Ur Leukocyte Esterase Negative (NEGATIVE) Urine RBC None seen (0-5/HPF) Urine WBC 0-1/hpf (0-5/HPF) Ur Squamous Epith Cells 1-5 /hpf (0-5/HPF) Urine Bacteria None seen (None) Ur Culture Indicated? Cult not indicated ECG Data Interpretation: EKG independently reviewed by myself at 1246 reveals normal sinus rhythm at 95 bpm with regular axis and intervals. No STEMI, ST segment changes, arrhythmia, or acute ischemic changes. MDM Narrative Medical decision making narrative: Chief Complaint: Allergic reaction Independent historian: Patient Multiple etiologies for patient's symptoms considered including, but not limited to: Anaphylaxis, allergic reaction, I have independently reviewed the patient's vital signs and nursing notes as well as prior records if available. Pertinent records include: No recent urine cultures for review, history of G vaginalis urine culture from 11/18/2020 My EKG interpretation: Normal sinus rhythm without ectopy, ventricular rate of 95, normal axis and intervals My interpretation of lab studies: CBC is unremarkable, CMP is unremarkable as well, UA is negative for abnormality however urine culture was ordered and is pending Course of care: Patient was treated with IM epinephrine 0.5 MG X1, followed up with famotidine, normal saline x1 L, methylprednisolone, loratadine and hydroxyzine. After approximately 20 minutes, patient reports that she started feeling much better, no longer had a scratchy throat sensation, she was observed for a couple of hours and did not have return of her symptoms. Her urticaria had improved and so did her sensation chest tightness and throat tightness. She was prescribed 5 days of cephalexin and discontinued her Bactrim for concern about sulfa allergy. Patient's brother has a history of sulfa allergy. She states that she is had cephalexin in the past and is well tolerated. Since she is currently on antibiotics, I understand her urinalysis is negative for abnorm ality however urine culture will help determine if resolves. Patient is concerned about cystic acne, cephalexin will help with this while she is on Medrol Dosepak. Encouraged her to stay well hydrated, she was prescribed Medrol Dosepak, hydroxyzine for symptoms, 2 EpiPen, famotidine, and cetirizine for her symptoms. She is encouraged to discontinue sulfa medication immediately and list sulfa as her allergy. Social considerations that may affect disposition: none Questions are addressed and there is agreement with the plan and for follow-up. I consulted with the ED attending physician Dr. Luz as needed for higher level of care considerations, and they were available for discussion and recommendations regarding plan of care and diagnostic testing. Patient is appropriate for outpatient management. <Freeman Luz, DO - Last Filed: 08/28/22 22:17> Lab Data Labs: Lab Results 08/28/22 08/28/22 08/28/22 Range/Units 12:41 12:50 12:50 WBC 8.1 (4.5-11.0) X10^3/uL RBC 5.06 (4.0-5.2) X10^6/uL Hgb 14.7 (12.0-16.0) g/dL Hct 44.0 (36-46) % MCV 86.9 (80-100) fL MCH 29.0 (26-34) PG MCHC 33.4 (30-36) % RDW 13.0 (11.6-14.8) % Plt Count 255 (150-400) X10^3/uL Neut % (Auto) 60.0 (50-75) % Lymph % (Auto) 26.0 (25-40) % Hamilton % (Auto) 9.8 (3-14) % Eos % (Auto) 3.2 (2-4) % Baso % (Auto) 1.0 (0-2) % Neut # (Auto) 4800 (7059-1004) /uL Lymph # (Auto) 2100 (4467-7145) /uL Hamilton # (Auto) 800 (0-900) /uL Eos # (Auto) 300 (0-450) /uL Baso # (Auto) 100 (0-100) /uL Sodium 138 (137-145) mmol/L Potassium 3.9 (3.4-5.1) mmol/L Chloride 104 (98-107) mmol/L Carbon Dioxide 22 (22-32) mmol/L BUN 17 (7-17) mg/dL Creatinine 0.96 (0.52-1.04) mg/dL Estimated GFR > 60 (>60) mL/min BUN/Creatinine Ratio 17.7 (6-22) Glucose 118 H (70-100) mg/dL Calcium 10.4 H (8.4-10.2) mg/dL Magnesium 2.4 H (1.6-2.3) mg/dL Total Bilirubin 0.5 (0.2-1.3) mg/dL AST 26 (14-36) IU/L ALT 36 H (<35) IU/L Alkaline Phosphatase 77 (38-126) U/L Total Protein 8.3 H (6.3-8.2) g/dL Albumin 4.9 (3.5-5.0) g/dL Globulin 3.4 (1.7-4.1) g/dL Albumin/Globulin Ratio 1.4 (1.0-2.8) Urine Color Yellow Urine Appearance Clear Urine pH 6.0 (4.5-8.0) Ur Specific [place] <=1.005 (1.000-1.035) Urine Protein Negative (Negative) Urine Glucose (UA) Negative (Negative) g/dL Urine Ketones Negative (NEGATIVE) Urine Occult Blood Negative (Negative) Urine Nitrate Negative (Negative) Urine Bilirubin Negative (NEGATIVE) Urine Urobilinogen 0.2 (0.2) E.U./dL Ur Leukocyte Esterase Negative (NEGATIVE) Urine RBC None seen (0-5/HPF) Urine WBC 0-1/hpf (0-5/HPF) Ur Squamous Epith Cells 1-5 /hpf (0-5/HPF) Urine Bacteria None seen (None) Ur Culture Indicated? Cult not indicated Discharge Plan Departure Patient Disposition: Home Clinical Impression: Anaphylactic reaction Qualifiers: Encounter type: initial encounter Qualified Code(s): T78.2XXA - Anaphylactic shock, unspecified, initial encounter Allergic reaction Qualifiers: Encounter type: initial encounter Qualified Code(s): T78.40XA - Allergy, unspecified, initial encounter Instructions: Anaphylaxis, Could You Be Allergic to Sulfites? Activity Restrictions/Additional Instructions: *You have been diagnosed with anaphylactic allergic reaction response. This is a hypersensitivity reaction. Please start these medications for the next few days and use hydroxyzine as needed for itching. I have given you an EpiPen to use if you have a hypersensitivity reaction again. Please take Zyrtec daily, that is the cetirizine, continue with cephalexin, that will prevent the cystic acne related to steroid use, I have given you a Medrol Dosepak which is different in nature than prednisone but does the same thing. Famotidine is for stomach ulcer prevention but helps with your allergic response. 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 Ensure that you discontinue the Bactrim at this point and place it on your allergy list. *What to do: *Please continue to take your regular medications as directed. [ x] New medication prescriptions sent to your pharmacy: [facility] ] [ ] New medication written as a paper prescription [ ] No new medications given *Please call and schedule follow up with your primary care provider in 2-3 days, at least for an update. Let them know you were seen in the Emergency Department for the above problem. We will electronically transmit a record of today's note if your PCP or specialist is in our system. *If you do not have a primary care provider please contact [phone] to establish care with one of the [facility] primary care providers. *Return to the Emergency Department for worsening symptoms, inability to keep liquids down, fever greater than 101F, chills, or other concerning symptom. Prescriptions: New cetirizine 10 mg capsule 10 mg PO DAILY Qty: 30 0RF famotidine 20 mg tablet 20 mg PO DAILY Qty: 30 0RF hydroxyzine HCl 25 mg tablet 25 mg PO TID PRN (Reason: itching) Qty: 30 0RF cephalexin 500 mg capsule 500 mg PO TID 5 Days Qty: 15 0RF methylprednisolone [Medrol (Lucio)] 4 mg tablets,dose pack See Rx Instructions .ROUTE .COMPLEX Qty: 21 0RF Rx Instructions: orally per package directions epinephrine 0.3 mg/0.3 mL auto-injector 0.3 ml IM Q5-15M PRN (Reason: anaphylaxis) Qty: 2 0RF Rx Instructions: do not exceed 3 doses per episode No Action levocetirizine [Xyzal] 5 mg tablet 2.5 mg PO DAILY PRN (Reason: Allergies) esomeprazole magnesium [Nexium] 40 MG capsule,delayed release(DR/EC) 40 mg PO QDAY Qty: 0 Pseudoephedrine Hydrochlorid (#SUDAFED) 60 mg PO PRN Qty: 0 meclizine 25 mg Capsule 25 mg PO PRN PRN (Reason: Dizziness) Qty: 0 cholecalciferol (vitamin D3) [Vitamin D3] 25 mcg (1,000 unit) Capsule 25 mcg PO DAILY Qty: 0 Acetaminophen/Aspirin/Caffei (EXCEDRIN EXTRA STRENGTH 250 MG-250 MG-65 MG~) 2 2 PO PRN Qty: 0 calcium carbonate 500 mg calcium (1,250 mg) Tablet,Chewable 500 mg PO DAILY PRN (Reason: GI Upset) Qty: 0 vitamin B complex Capsule 1 cap PO DAILY Qty: 0 Mirena 1 EACH intrauterine device 52 mg INTRAU CONT Qty: 0 sodium,potassium,mag sulfates [Suprep Bowel Prep Kit] 17.5-3.13-1.6 gram recon soln See Rx Instructions PO .COMPLEX Qty: 354 0RF Rx Instructions: Take as directed by Physician dexbrompheniramine-pseudoephed 6-120 mg Tablet Extended Release 12 Hr See Rx Instructions .ROUTE .COMPLEX Rx Instructions: per dr order Flonase See Rx Instructions .ROUTE .COMPLEX Rx Instructions: per dr order hyoscyamine 1.25 mg PO PRN (Reason: Abdominal Discomfort) Rx Instructions: For intestinal spasms Referrals: Jaydon Noyola MD [Primary Care Provider] - Stand Alone Forms: Patient Portal/API <Freeman Luz DO - Last Filed: 08/28/22 22:17> Cosign ED Attending Segun Attestation: I was immediately available in the department for consultation. Documentation h as been reviewed. I agree with assessment and plan.
[2022-08-28] MEDS: EPINEPHrine 1 MG/ML 0.5 MG IM (12:58)
[2022-08-28] MEDS: FAMOTIDINE 20 MG/2 ML VIAL IV (12:59)
[2022-08-28 13:00] VITALS: BP 168/88; PULSE 105; RESP 24; O2SAT 100
[2022-08-28] MEDS: methylPREDNISolone 125 MG/2 ML VIAL IV (13:00)
[2022-08-28 13:01] LABS: Add Manual Diff / Slide Review NO; Basophils Absolute Auto 100 /uL (0-100); Eosinophils Absolute Auto 300 /uL (0-450); Eosinophils Percent Auto 3.2 % (2-4); Hemoglobin 14.7 g/dL (12.0-16.0); Lymphocytes Absolute Auto 2100 /uL (1100-4500); Mean Corpuscular HGB Conc 33.4 % (30-36); Mean Corpuscular Volume 86.9 fL (80-100); Monocytes Absolute Auto 800 /uL (0-900); Monocytes Percent Auto 9.8 % (3-14); Neutrophils Absolute Auto 4800 /uL (1500-7000); Platelet Count 255 X10^3/uL (150-400); Red Blood Cell Count 5.06 X10^6/uL (4.0-5.2); White Blood Cell Count 8.1 X10^3/uL (4.5-11.0)
[2022-08-28] MEDS: SODIUM CHLORIDE 0.9% 1,000 ML 1000 ML IV (13:10)
[2022-08-28] MEDS: hydrOXYzine pamoate 25 MG CAPSULE PO (13:12)
[2022-08-28] MEDS: LORATADINE 10 MG TABLET PO (13:20)
[2022-08-28 13:22] LABS: Alanine Aminotransferase 36 IU/L (<35); Albumin 4.9 g/dL (3.5-5.0); Albumin Globulin Ratio 1.4 (1.0-2.8); Alkaline Phosphatase 77 U/L (38-126); Aspartate Aminotransferase 26 IU/L (14-36); BUN Creatinine Ratio 17.7 (6-22); Bilirubin Total 0.5 mg/dL (0.2-1.3); Blood Urea Nitrogen 17 mg/dL (7-17); Calcium 10.4 mg/dL (8.4-10.2); Carbon Dioxide 22 mmol/L (22-32); Chloride 104 mmol/L (98-107); Estimated Glomerular Filt Rate > 60 mL/min (>60); Globulin 3.4 g/dL (1.7-4.1); Glucose 118 mg/dL (70-100); HEMOLYSIS < 15 (0-50); Magnesium 2.4 mg/dL (1.6-2.3); Potassium 3.9 mmol/L (3.4-5.1); Sodium 138 mmol/L (137-145); Total Protein 8.3 g/dL (6.3-8.2)
[2022-08-28 13:28] LABS: Appearance Urine UA CLEAR; Bilirubin Urine UA NEGATIVE (NEGATIVE); Color Urine UA YELLOW; Glucose Urine UA NEGATIVE (Negative); Ketones Urine UA NEGATIVE (NEGATIVE); Leukocyte Esterase Urine UA NEGATIVE (NEGATIVE); Nitrite Urine UA NEGATIVE (Negative); Occult Blood Urine UA NEGATIVE (Negative); Protein Urine UA NEGATIVE (Negative); Specific Gravity Urine UA <=1.005 (1.000-1.035); Urobilinogen Urine UA 0.2 E.U./dL (0.2)
[2022-08-28 13:30] VITALS: BP 135/62; PULSE 95; RESP 20; O2SAT 100
[2022-08-28 13:41] LABS: Bacteria Urine None Seen; RBC Urine None Seen (0-5/HPF); Squamous Epithelial Cell Urine 1-5 /HPF (0-5/HPF); WBC Urine 0-1/HPF (0-5/HPF)
[2022-08-28 13:42] LABS: Culture Indicated Urine Cult Not Indicated
--- NOTE | 2022-08-28 14:01 | PC.NURSE ---
Pt reports that her throat no longer feels tight and irritated. Pt has stopped clearing her throat continuously and speaks in a clear voice.
[2022-08-28 14:10] VITALS: BP 143/68; PULSE 94; RESP 20; O2SAT 100
== END 2022-08-28 14:29 | disposition home or self-care (01) ==
PROVIDERS: Emergency Provider Nurse Practitioner Critical Care Medicine; Family Provider Family Medicine; PCP Family Medicine
DX: T78.2XXA Anaphylactic shock, unspecified, initial encounter (principal); T50.995A Adverse effect of other drugs, medicaments and biological substances, initial encounter; R07.89 Other chest pain; R06.02 Shortness of breath; Z79.899 Other long term (current) drug therapy
CPT/HCPCS: 36415; 80053; 81001; 83735; 85025; 87086; 93005; 93010; 96361; 96372; 96374; 96375; 99284; J0171; J2930

== ENCOUNTER → 2023-05-27 15:19 | Outpatient (CLI) | payer OTHER, SELFPAY ==
--- NOTE | 2023-05-27 | DI.MG.S_ITS ---
BILATERAL DIGITAL SCREENING MAMMOGRAM 3D/2D WITH CAD: 05/27/2023 CLINICAL: Routine screening. Comparison is made to exams dated: 02/19/2022 mammogram, 02/16/2020 mammogram, and 04/29/2018 mammogram - [facility]. There are scattered areas of fibroglandular density in both breasts (category b / 25%-50% glandular tissue). Current study was also evaluated with a Computer Aided Detection (CAD) system. No significant masses, calcifications, or other findings are seen in either breast. There has been no significant interval change. IMPRESSION: NEGATIVE There is no mammographic evidence of malignancy. A 1 year screening mammogram is recommended. Based on the Tyrer Cuzick model (a risk assessment model) the patient's lifetime risk is 8.8% and her 10 year risk is 2.0%. According to the ACR, ACS, and NCCN guidelines, an annual breast MRI exam along with mammogram is recommended if the patient's lifetime risk is 20% or greater. This exam was interpreted at Station ID: [id number]. NOTE: For mammograms, a report in lay terms will be sent to the patient. Approximately 15% of breast malignancies will not be visualized mammographically. In the management of a palpable breast mass, a negative mammogram must not discourage biopsy of a clinically suspicious lesion. Electronically Signed By: Casimiro vergara/dipesh:05/28/2023 11:08:21 copy to: Manohar Fox letter sent: Normal Exam ACR BI-RADS Category 1: Negative [id number]
== END ==
LOC: MAMMO 15:20
PROVIDERS: Family Provider Family Medicine; PCP Family Medicine; Referring Provider Family Medicine; Visit Provider Family Medicine
DX: Z12.31 Encounter for screening mammogram for malignant neoplasm of breast (principal); R92.323 Mammographic fibroglandular density, bilateral breasts
CPT/HCPCS: 77063; 77067

== ENCOUNTER → 2023-09-30 15:44 | Outpatient (CLI) | payer OTHER, SELFPAY ==
[2023-09-30 17:43] LABS: Appearance Urine UA CLEAR; Bilirubin Urine UA NEGATIVE (NEGATIVE); Color Urine UA YELLOW; Glucose Urine UA NEGATIVE (Negative); Ketones Urine UA NEGATIVE (NEGATIVE); Leukocyte Esterase Urine UA NEGATIVE (NEGATIVE); Nitrite Urine UA NEGATIVE (Negative); Occult Blood Urine UA NEGATIVE (Negative); Protein Urine UA NEGATIVE (Negative); Specific Gravity Urine UA <=1.005 (1.000-1.035); Urobilinogen Urine UA 0.2 E.U./dL (0.2)
[2023-09-30 17:46] LABS: pH Urine UA 5.5 (4.5-8.0)
[2023-09-30 17:52] LABS: Add Manual Diff / Slide Review NO; Basophils Absolute Auto 0 /uL (0-100); Basophils Percent Auto 0.4 % (0-2); Eosinophils Absolute Auto 200 /uL (0-450); Eosinophils Percent Auto 2.4 % (2-4); Hematocrit 39.1 % (36-46); Lymphocytes Absolute Auto 2600 /uL (1100-4500); Lymphocytes Percent Auto 29.3 % (25-40); Mean Corpuscular HGB Conc 33.3 % (30-36); Mean Corpuscular Hemoglobin 28.6 PG (26-34); Mean Corpuscular Volume 86.1 fL (80-100); Monocytes Absolute Auto 700 /uL (0-900); Monocytes Percent Auto 7.7 % (3-14); Neutrophils Absolute Auto 5400 /uL (1500-7000); Neutrophils Percent Auto 60.2 % (50-75); Platelet Count 229 X10^3/uL (150-400); Red Blood Cell Count 4.54 X10^6/uL (4.0-5.2); Red Cell Distribution Width 13.1 % (11.6-14.8); White Blood Cell Count 8.9 X10^3/uL (4.5-11.0)
[2023-09-30 17:53] LABS: Bacteria Urine Occasional (0-1); Culture Indicated Urine Cult Not Indicated; RBC Urine 0-1/HPF (0-5/HPF); Squamous Epithelial Cell Urine 5-10 /HPF (0-5/HPF); Urine Volume 10mL (spun); WBC Urine 0-1/HPF (0-5/HPF)
[2023-09-30 18:18] LABS: Alanine Aminotransferase 38 IU/L (<35); Albumin 4.2 g/dL (3.5-5.0); Albumin Globulin Ratio 1.5 (1.0-2.8); Alkaline Phosphatase 65 U/L (38-126); Aspartate Aminotransferase 28 IU/L (14-36); BUN Creatinine Ratio 18.7 (6-22); Bilirubin Total 0.4 mg/dL (0.2-1.3); Blood Urea Nitrogen 14 mg/dL (7-17); Calcium 10.4 mg/dL (8.4-10.2); Carbon Dioxide 26 mmol/L (22-32); Chloride 107 mmol/L (98-107); Cholesterol 174 mg/dL (140-199); Estimated Glomerular Filt Rate > 60 mL/min (>60); Globulin 2.8 g/dL (1.7-4.1); Glucose 91 mg/dL (70-100); HDL Cholesterol 57 mg/dL (40-60); HEMOLYSIS < 15 (0-50); LDL Cholesterol Calculated 99 mg/dL (<100); Sodium 137 mmol/L (137-145); Triglycerides 92 mg/dL (35-150)
[2023-09-30 18:23] LABS: Hemoglobin A1C% w Est Avg Glu 5.8 % (4.0-6.0)
[2023-09-30 18:44] LABS: TSH w/ Reflex to FT4 1.56 uIU/mL (0.47-4.68)
== END ==
LOC: LAB 15:46
PROVIDERS: Family Provider Family Medicine; PCP Family Medicine; Referring Provider Family Medicine; Visit Provider Family Medicine
DX: Z00.01 Encounter for general adult medical examination with abnormal findings (principal); E66.01 Morbid (severe) obesity due to excess calories; R30.0 Dysuria; R53.83 Other fatigue
CPT/HCPCS: 36415; 80053; 80061; 81001; 83036; 84443; 85025; 87086

== ENCOUNTER → 2024-09-30 10:27 | Outpatient (CLI) | payer OTHER, SELFPAY ==
--- NOTE | 2024-09-30 10:28 | DI.RAD.S_ITS ---
PROCEDURE: XR FOOT RT MIN 3V INDICATIONS: Dropped computer on top of foot, L I TECHNIQUE: 3 views of the foot were acquired. COMPARISON: None. FINDINGS: Bones: No fractures or dislocations identified; however the 3rd and 4th distal phalanges are suboptimally visualized. Calcaneal enthesopathy. No suspicious bony lesions. Soft tissues: No tibiotalar joint effusion. Achilles tendon appears normal. IMPRESSION: No acute bony abnormality; however the 3rd and 4th distal phalanges suboptimally visualized. Dictated by: Robert Villasenor [facility] Interpreted: Jeny Ryan MD on 10/01/2024 at 12:34 Transcribed by: ASHLEY on 10/01/2024 at 12:35 Approved by: Jeny Ryan M.D. on 10/03/2024 at 7:43
== END ==
PROVIDERS: Family Provider Family Medicine; PCP Family Medicine; Referring Provider Nurse Practitioner Family; Visit Provider Nurse Practitioner Family
DX: S90.30XA Contusion of unspecified foot, initial encounter (principal)
CPT/HCPCS: 73630

== ENCOUNTER → 2024-11-18 15:14 | Outpatient (CLI) | payer BC, SELFPAY ==
--- NOTE | 2024-11-18 15:17 | DI.MG.S_ITS ---
MM screening mammo BI: 11/18/2024. BI-RADS: 1 CLINICAL: 54-year old female for bilateral screening mammogram. Tyrer-Cuzick lifetime risk of 14.9%. No personal or first-degree family history of breast cancer. The patient had a prior left breast biopsy. PRIOR EXAMS 05/27/2023, 02/19/2022, 02/16/2020, 04/29/2018. MAMMOGRAPHY TECHNIQUE: 2D and 3D (tomosynthesis) digital mammographic views obtained, with additional images as needed for full coverage. Current study was also evaluated with a Computer Aided Detection (CAD) system. DENSITY B. There are scattered areas of fibroglandular density. MAMMOGRAPHY FINDINGS Bilateral: No suspicious mass, asymmetry, microcalcification, or other abnormality seen. No significant change from comparison. IMPRESSION: * No evidence of malignancy. RECOMMENDATIONS Bilateral * Annual screening mammography. OVERALL ASSESSMENT CATEGORY BI-RADS-1: Negative. The [employer] recommends annual screening mammography beginning at age 40 for women with average risk of breast cancer. ELECTRONICALLY SIGNED: Emily Serna M.D. on 11/25/2024 at 03:08:33 PM PT Interpreting Station ID: [id number]
== END ==
LOC: MAMMO 15:16
PROVIDERS: Family Provider Family Medicine; PCP Family Medicine; Referring Provider Family Medicine; Visit Provider Family Medicine
DX: Z12.31 Encounter for screening mammogram for malignant neoplasm of breast (principal)
CPT/HCPCS: 77063; 77067